=== PATIENT | male | born 1980 | race Caucasian/White ===

== ENCOUNTER → 2019-11-12 14:08 | Outpatient (CLI) | payer OTHER, SELFPAY ==
[2019-11-12 12:14] VITALS: BMI 49.0
== END ==
PROVIDERS: Family Provider Family Medicine; PCP Family Medicine; Referring Provider Physician Assistant Surgical; Visit Provider Physician Assistant Surgical
DX: L08.9 Local infection of the skin and subcutaneous tissue, unspecified (principal); B95.8 Unspecified staphylococcus as the cause of diseases classified elsewhere
CPT/HCPCS: 87070; 87077; 87186; 87205

== ENCOUNTER → 2020-10-13 14:45 | Outpatient (CLI) | payer OTHER, SELFPAY ==
[2019-11-12 12:14] VITALS: BMI 49.0
[2020-10-13 17:53] LABS: Absolute Lymphocyte Count 2.03 X10^3/uL (0.83-4.51); Absolute Neutrophil Count 7.8 X10^3/uL (2.0-7.7); Basophil# 0.04 X10^3/uL; Basophil% 0.4 % (0-1); Eosinophil# 0.19 X10^3/uL; Eosinophils% 1.7 % (0-5); Hemoglobin 15.3 g/dL (13.0-16.5); Lymphocyte # 2.03 X10^3/ul (4.0); Mean Corp Hgb Conc 31.9 g/dL (32-36); Mean Corpuscular Hgb 28.6 pg (27.0-32.0); Mean Corpuscular Volume 89.7 fL (80-94); Mean Platelet Vol. 9.5 fl (6.2-12.0); Monocyte# 1.12 X10^3/uL; Monocyte% 9.9 % (0-10); NRBC Flagged by Analyzer 0 % (0-5); Neutrophil # 7.82 X10^3/uL (2.7-7.7); Neutrophil % 69.2 % (47-70); Platelet Count 374 K/mm3 (150-450); RBC Distribution Width CV 12.8 % (11.6-14.6); Red Blood Count 5.35 M/mm3 (4.6-6.2); White Blood Count 11.3 K/mm3 (4.4-11.0)
[2020-10-13 18:14] LABS: AST(SGOT) 21 U/L (15-37); Alanine Aminotransfer ALT/SGPT 46 U/L (16-61); Albumin, Serum 3.8 g/dL (3.2-5.0); Alkaline Phosphatase 100 U/L (45-117); Anion Gap 6 (5-15); BUN 16 mg/dL (7-18); BUN/Creat Ratio 19.8 RATIO (10-20); Calcium,Total 9.2 mg/dL (8.5-10.1); Chloride 104 mmol/L (98-107); Cholesterol 202 mg/dL (200); Creatinine, Serum 0.81 mg/dL (0.70-1.30); EST Glomerular Filtration Rate 114 mL/min (>60); Est Glom Filt Rate - Afr Amer 138 mL/min (>60); Globulin 3.8 g/dL (2.2-4.2); Glucose 99 mg/dL (74-106); High Density Lipoprotein 48 mg/dL; Potassium 3.4 mmol/L (3.5-5.1); Protein, Total 7.6 g/dL (6.4-8.2); Sodium Level 139 mmol/L (136-145); Thyroid Stim Hormone (TSH) 1.25 uIU/mL (0.358-3.74); Triglycerides 120 mg/dL; Very Low Density Lipoprotein 24 mg/dL (5-40)
== END ==
PROVIDERS: PCP Family Medicine; Visit Provider Family Medicine
DX: E66.01 Morbid (severe) obesity due to excess calories (principal)
CPT/HCPCS: 36415; 80053; 80061; 84443; 85025

== ENCOUNTER → 2020-10-20 11:30 | Outpatient (CLI) | payer OTHER, SELFPAY ==
[2019-11-12 12:14] VITALS: BMI 49.0
--- NOTE | 2020-10-20 11:34 | US_ITS ---
STUDY: THYROID ULTRASOUND REASON FOR EXAM: Male, 40 years old. Nodule. TECHNIQUE: Ultrasound evaluation of the thyroid was performed with real-time and static souza-scale imaging. COMPARISON: None. FINDINGS: RIGHT LOBE: The right lobe of the thyroid gland measures 4.1 x 1.8 x 1.6 cm. There is a homogeneous echotexture. In the posterior mid thyroid there is a heterogeneously hypoechoic 4 x 5 x 4 mm nodule. It is uncertain whether this thyroid nodule or parathyroid gland. LEFT LOBE: The left lobe of the thyroid gland measures 4.9 x 1.6 x 1.4 cm. There is a homogeneous echotexture. There are no demonstrated solid, cystic or complex lesions. ISTHMUS: The isthmus measures 0.5 cm. The regional lymph nodes are normal. US/Thyroid IMPRESSION: Hypoechoic thyroid nodule versus parathyroid gland in the mid right thyroid. Study is otherwise unremarkable. Electronically Signed: Joaquim Green DO at 23:26 EST Tel [phone], Service support ,
== END ==
PROVIDERS: PCP Family Medicine; Referring Provider Family Medicine; Visit Provider Family Medicine
DX: E04.1 Nontoxic single thyroid nodule (principal)
CPT/HCPCS: 76536

== ENCOUNTER → 2020-11-28 12:10 | Outpatient (CLI) | payer OTHER, SELFPAY ==
[2019-11-12 12:14] VITALS: BMI 49.0
[2020-11-28 15:51] LABS: Anion Gap 8 (5-15); BUN 17 mg/dL (7-18); BUN/Creat Ratio 21.1 RATIO (10-20); Calcium,Total 9.3 mg/dL (8.5-10.1); Chloride 104 mmol/L (98-107); Creatinine, Serum 0.81 mg/dL (0.70-1.30); EST Glomerular Filtration Rate 114 mL/min (>60); Est Glom Filt Rate - Afr Amer 138 mL/min (>60); Glucose 87 mg/dL (74-106); Potassium 3.4 mmol/L (3.5-5.1); Sodium Level 139 mmol/L (136-145)
== END ==
PROVIDERS: PCP Family Medicine; Visit Provider Family Medicine
DX: I10 Essential (primary) hypertension (principal)
CPT/HCPCS: 36415; 80048

== ENCOUNTER → 2021-06-12 15:23 | Outpatient (CLI) | payer OTHER, SELFPAY ==
[2019-11-12 12:14] VITALS: BMI 49.0
[2021-06-12 17:17] LABS: Absolute Lymphocyte Count 2.11 X10^3/uL (0.83-4.51); Absolute Neutrophil Count 7.7 X10^3/uL (2.0-7.7); Basophil# 0.06 X10^3/uL; Basophil% 0.5 % (0-1); Eosinophil# 0.14 X10^3/uL; Eosinophils% 1.3 % (0-5); Hematocrit 46.6 % (40-54); Hemoglobin 14.9 g/dL (13.0-16.5); Lymphocyte # 2.11 X10^3/ul (0.83-4.51); Lymphocyte % 18.9 % (19-41); Mean Corpuscular Hgb 28.8 pg (27.0-32.0); Mean Corpuscular Volume 90.1 fL (80-94); Mean Platelet Vol. 9.5 fl (6.2-12.0); Monocyte# 1.01 X10^3/uL; Monocyte% 9.1 % (0-10); NRBC Flagged by Analyzer 0 % (0-5); Neutrophil # 7.72 X10^3/uL (2.7-7.7); Neutrophil % 69.2 % (47-70); Platelet Count 386 K/mm3 (150-450); RBC Distribution Width CV 12.6 % (11.6-14.6); RBC Distribution Width SD 41.9 fl (35.1-43.9); Red Blood Count 5.17 M/mm3 (4.6-6.2); White Blood Count 11.2 K/mm3 (4.4-11.0)
[2021-06-12 17:32] LABS: AST(SGOT) 12 U/L (15-37); Alanine Aminotransfer ALT/SGPT 29 U/L (16-61); Albumin, Serum 3.6 g/dL (3.2-5.0); Alkaline Phosphatase 93 U/L (45-117); Anion Gap 4 (5-15); BUN 13 mg/dL (7-18); BUN/Creat Ratio 17.2 RATIO (10-20); Calcium,Total 8.9 mg/dL (8.5-10.1); Chloride 111 mmol/L (98-107); Cholesterol 201 mg/dL (200); Creatinine, Serum 0.76 mg/dL (0.70-1.30); EST Glomerular Filtration Rate 122 mL/min (>60); Est Glom Filt Rate - Afr Amer 148 mL/min (>60); Globulin 3.7 g/dL (2.2-4.2); Glucose 93 mg/dL (74-106); High Density Lipoprotein 57 mg/dL; Potassium 3.9 mmol/L (3.5-5.1); Protein, Total 7.3 g/dL (6.4-8.2); Sodium Level 145 mmol/L (136-145); Triglycerides 124 mg/dL; Very Low Density Lipoprotein 25 mg/dL (5-40)
== END ==
PROVIDERS: PCP Family Medicine; Referring Provider Family Medicine; Visit Provider Family Medicine
DX: I10 Essential (primary) hypertension (principal)
CPT/HCPCS: 36415; 80053; 80061; 85025

== ENCOUNTER 2021-07-30 21:05 | Emergency (ER) | payer OTHER, SELFPAY ==
[2021-07-30 21:30] VITALS: BP 144/90; PULSE 96; RESP 21; TEMP 36.4; O2SAT 96; BMI 51.7
[2021-07-30 21:33] VITALS: BP 144/90; PULSE 96; RESP 21; TEMP 36.4; O2SAT 96
--- NOTE | 2021-07-30 21:44 | EKG12_ITS ---
Test Reason : DYSRYTHMIA Blood Pressure : / mmHG Vent. Rate : 097 BPM Atrial Rate : 097 BPM P-R Int : 156 ms QRS Dur : 096 ms QT Int : 386 ms P-R-T Axes : 044 -23 -11 degrees QTc Int : 490 ms Normal sinus rhythm Prolonged QT Poor R wave progression Abnormal ECG Confirmed by ISRRAEL SHUKLA, SLOAN ([id number]), field map editor PRACHI GUAJARDO ([id number]) on 08/03/2021 11:52:34 AM Referred By: JEFFRY Confirmed By:SLOAN ARCOS MD
--- NOTE | 2021-07-30 21:46 | EX.ED.DYSGE1 ---
HPI <Dr. Lili Ortiz MD - Last Filed: 07/30/21 23:09> History of Present Illness Chief Complaint: General Illness Informant: patient and spouse/S.O. Onset/Context/Timing Onset: Yesterday Current Severity: Moderate Maximum Severity: Moderate Narrative Narrative: Patient presents with complaints of congestion, sore throat, cough, shortness of breath, vomiting, diarrhea. Patient became ill yesterday. No fever has been measured. He did have an episode of lightheadedness tonight causing him to fall to the floor. is not sure that he passed out. Patient denies chest pain at this time. He does complain of diffuse abdominal pain. He did have the Covid vaccine. One of their children is sick with a sinus infection currently. PFSH <Dr. Lili Ortiz MD - Last Filed: 07/30/21 23:09> [facility] Medical History Depression HTN (hypertension) Home Medications lisinopril 20 mg PO DAILY 07/30/21 [History Last Taken Unknown] ondansetron 4 mg PO Q8H PRN PRN #20 tab 07/31/21 [Rx Last Taken Unknown] Allergy/AdvReac Type Severity Reaction Status Date / Time No Known Allergies Allergy Verified 07/30/21 21:33 Social History Smoking Status: Former smoker alcohol intake: never ROS <Dr. Lili Ortiz MD - Last Filed: 07/30/21 23:09> ROS ED Constitutional Constitutional ED: Denies chills or fever(s) Eyes Eyes: Denies change in vision ENT ENT ED: Reports sore throat and other Details: Congestion Cardiovascular Cardiovascular: Denies chest pain Respiratory/Chest Respiratory/Chest: Reports cough and dyspnea Gastrointestinal Gastrointestinal: Reports abdominal pain, diarrhea, nausea and vomiting Genitourinary Genitourinary ED: Denies dysuria Musculoskeletal Musculoskeletal: Reports myalgias; Denies back pain Integumentary Denies rash Neurologic Neurologic: Reports weakness; Denies headache(s) Psychiatric Psychiatric: Denies anxiety or depression Allergic/Immunologic Allergic/Immunologic ED: Denies urticaria EXAM <Dr. Lili Ortiz MD - Last Filed: 07/30/21 23:09> Physical Exam Const Vital Signs: 07/30/21 21:30 07/30/21 21:33 07/30/21 21:34 Temperature 97.6 F L 97.6 F L Temperature Source Oral Oral Pulse Rate 96 96 Respiratory Rate 21 H 21 H Respiratory Effort Short of Breath Blood Pressure 144/90 H 144/90 H Blood Pressure Mean 108 108 Pulse Ox 96 96 Oxygen Delivery Method Room Air Room Air 07/30/21 22:33 07/30/21 23:05 07/31/21 00:00 Temperature 97.6 F L 98.9 F 98.9 F Temperature Source Oral Oral Oral Pulse Rate 114 H 115 H 120 H Respiratory Rate 20 H 20 H 25 H Respiratory Effort Blood Pressure 146/110 H 151/137 H 149/134 H Blood Pressure Mean 122 141 139 Pulse Ox 96 95 96 Oxygen Delivery Method Room Air Room Air Room Air 07/31/21 01:31 07/31/21 04:04 07/31/21 05:08 Temperature Temperature Source Pulse Rate 112 H 113 H 112 H Respiratory Rate 25 H 26 H 18 Respiratory Effort Blood Pressure 146/100 H Blood Pressure Mean Pulse Ox 93 94 99 Oxygen Delivery Method Room Air Room Air Positive well nourished and well developed General Appearance ED: well developed HEENT Reports normocephalic and head/scalp atraumatic Eyes PERRL and EOMs intact bilaterally Neck supple Chest Wall inspection of chest normal and palpation of chest normal Resp normal respiratory effort and clear to auscultation bilaterally Cardio regular rate and regular rhythm GI Auscultation: hypoactive bowel sounds Palpation: soft and tender other (Mild diffuse tenderness to palpation.) Extremity normal to inspection Neuro oriented x3 Sensorium / Orientation: alert Psych mental status grossly normal Skin no rashes or lesions noted <Dr. Roderick Arguello DO - Last Filed: 07/31/21 07:07> Physical Exam Const Vital Signs: 07/30/21 21:30 07/30/21 21:33 07/30/21 21:34 Temperature 97.6 F L 97.6 F L Temperature Source Oral Oral Pulse Rate 96 96 Respiratory Rate 21 H 21 H Respiratory Effort Short of Breath Blood Pressure 144/90 H 144/90 H Blood Pressure Mean 108 108 Pulse Ox 96 96 Oxygen Delivery Method Room Air Room Air 07/30/21 22:33 07/30/21 23:05 07/31/21 00:00 Temperature 97.6 F L 98.9 F 98.9 F Temperature Source Oral Oral Oral Pulse Rate 114 H 115 H 120 H Respiratory Rate 20 H 20 H 25 H Respiratory Effort Blood Pressure 146/110 H 151/137 H 149/134 H Blood Pressure Mean 122 141 139 Pulse Ox 96 95 96 Oxygen Delivery Method Room Air Room Air Room Air 07/31/21 01:31 07/31/21 04:04 07/31/21 05:08 Temperature Temperature Source Pulse Rate 112 H 113 H 112 H Respiratory Rate 25 H 26 H 18 Respiratory Effort Blood Pressure 146/100 H Blood Pressure Mean Pulse Ox 93 94 99 Oxygen Delivery Method Room Air Room Air MDM <Dr. Lili Ortiz MD - Last Filed: 07/30/21 23:09> MDM MDM Narrative Medical decision making narrative: Patient is given a liter IV fluid along with morphine and Zofran for pain and nausea. Lab work, chest x-ray, Covid swab obtained. Lab Data Attestation: I reviewed the patient's lab results. Labs: Laboratory Results - last 24 hr 07/30/21 07/30/21 07/30/21 20:55 20:55 22:26 WBC 15.7 H RBC 6.44 H Hgb 18.7 H* Hct 57.1 H MCV 88.7 MCH 29.0 MCHC 32.7 RDW Std Deviation 42.2 RDW Coeff of Valentian 12.9 Plt Count 389 MPV 9.7 Immature Gran % (Auto) 1.000 H Neut % (Auto) 80.8 H Lymph % (Auto) 10.8 L [place] % (Auto) 5.7 Eos % (Auto) 1.3 Baso % (Auto) 0.4 Absolute Neuts (auto) 12.7 H Absolute Lymphs (auto) 1.70 Nucleated RBC % 0 Sodium 137 Potassium 3.2 L Chloride 99 Carbon Dioxide 28.0 Anion Gap 10 BUN 11 Creatinine 1.14 Estim Creat Clear Calc 87.86 Est GFR (MDRD) Af Amer 92 Est GFR (MDRD) Non-Af 76 BUN/Creatinine Ratio 9.6 L Glucose 140 H Lactic Acid 2.3 H* Calcium 10.1 Total Bilirubin 1.00 Direct Bilirubin 0.28 AST 18 ALT 40 Alkaline Phosphatase 119 H Total Protein 9.3 H Albumin 4.4 Globulin 4.9 H Lipase 170 07/31/21 02:40 WBC RBC Hgb Hct MCV MCH MCHC RDW Std Deviation RDW Coeff of Valentina Plt Count MPV Immature Gran % (Auto) Neut % (Auto) Lymph % (Auto) [place] % (Auto) Eos % (Auto) Baso % (Auto) Absolute Neuts (auto) Absolute Lymphs (auto) Nucleated RBC % Sodium Potassium Chloride Carbon Dioxide Anion Gap BUN Creatinine Estim Creat Clear Calc Est GFR (MDRD) Af Amer Est GFR (MDRD) Non-Af BUN/Creatinine Ratio Glucose Lactic Acid 1.9 Calcium Total Bilirubin Direct Bilirubin AST ALT Alkaline Phosphatase Total Protein Albumin Globulin Lipase Radiography Chest X-Ray - ED: 1 View, Read by ED Physician and Chronic Changes Diagnostic Testing: Radiology Impression Chest X-Ray 07/30/21 21:58 IMPRESSION: No radiographic evidence of acute cardiopulmonary disease. at 2223 Reported and signed by: Gregg Brito MD Electronically Signed: Gregg Brito MD at 22:22 EDT Tel , Service support , Abdomen/Pelvis CT 07/31/21 00:22 IMPRESSION: Likely enteritis/diarrhea as detailed above. Right adrenal mass. Nonemergent adrenal MRI can be performed to further evaluate. Electronically Signed: Jarocho Barrios DO at 1:19 EDT Tel , Service support , Chest CTA 07/31/21 00:22 IMPRESSION: 1. No pulmonary embolus or acute cardiopulmonary disease. 2. Indeterminate right adrenal lesion. Nonemergent follow-up recommended. 3. Hepatic steatosis. Individualized dose optimization techniques were used for this CT. at 0139 Reported and signed by: Gregg Brito MD Electronically Signed: Gregg Brito MD at 1:38 EDT Tel , Service support , EKG Initial EKG: Attestation: I personally reviewed and interpreted this EKG as follows: Interpretation: Sinus Rhythm (Sinus at 97. QTc measures 490. No acute ST change.) Treatment and Re-Evaluation Comments:: Patient's lab work is reviewed. White count is elevated at 15.7 which may be reactive from his vomiting. Hemoglobin is concentrated at 18.7. Chemistry studies show potassium of 3.2. Normal creatinine at this time. Normal LFTs and lipase. On repeat examination patient resting comfortably. He states he has no nausea at this time. Test results discussed with patient and at bedside. He has been ordered 40 mEq of IV potassium replacement. Repeat abdominal examination reveals minimal tenderness with no guarding or rebound. Hypoactive bowel sounds. Patient will be signed out to oncoming physician for observation as he has his potassium replaced. I did advise the patient to be able to tolerate p.o. we should build to get him home at that time. If he develops recurrent vomiting or worsened pain, or if his abdominal exam changes he may require CT scan. They voiced understanding and agreement. <Dr. Roderick Arguello, DO - Last Filed: 07/31/21 07:07> [facility] Lab Data Labs: Laboratory Results - last 24 hr 07/30/21 07/30/21 07/30/21 20:55 20:55 22:26 WBC 15.7 H RBC 6.44 H Hgb 18.7 H* Hct 57.1 H MCV 88.7 MCH 29.0 MCHC 32.7 RDW Std Deviation 42.2 RDW Coeff of Valentina 12.9 Plt Count 389 MPV 9.7 Immature Gran % (Auto) 1.000 H Neut % (Auto) 80.8 H Lymph % (Auto) 10.8 L [place] % (Auto) 5.7 Eos % (Auto) 1.3 Baso % (Auto) 0.4 Absolute Neuts (auto) 12.7 H Absolute Lymphs (auto) 1.70 Nucleated RBC % 0 Sodium 137 Potassium 3.2 L Chloride 99 Carbon Dioxide 28.0 Anion Gap 10 BUN 11 Creatinine 1.14 Estim Creat Clear Calc 87.86 Est GFR (MDRD) Af Amer 92 Est GFR (MDRD) Non-Af 76 BUN/Creatinine Ratio 9.6 L Glucose 140 H Lactic Acid 2.3 H* Calcium 10.1 Total Bilirubin 1.00 Direct Bilirubin 0.28 AST 18 ALT 40 Alkaline Phosphatase 119 H Total Protein 9.3 H Albumin 4.4 Globulin 4.9 H Lipase 170 07/31/21 02:40 WBC RBC Hgb Hct MCV MCH MCHC RDW Std Deviation RDW Coeff of Valentina Plt Count MPV Immature Gran % (Auto) Neut % (Auto) Lymph % (Auto) [place] % (Auto) Eos % (Auto) Baso % (Auto) Absolute Neuts (auto) Absolute Lymphs (auto) Nucleated RBC % Sodium Potassium Chloride Carbon Dioxide Anion Gap BUN Creatinine Estim Creat Clear Calc Est GFR (MDRD) Af Amer Est GFR (MDRD) Non-Af BUN/Creatinine Ratio Glucose Lactic Acid 1.9 Calcium Total Bilirubin Direct Bilirubin AST ALT Alkaline Phosphatase Total Protein Albumin Globulin Lipase Radiography Diagnostic Testing: Radiology Impression Chest X-Ray 07/30/21 21:58 IMPRESSION: No radiographic evidence of acute cardiopulmonary disease. at 2223 Reported and signed by: Gregg Brito MD Electronically Signed: Gregg Brito MD at 22:22 EDT Tel , Service support , Abdomen/Pelvis CT 07/31/21 00:22 IMPRESSION: Likely enteritis/diarrhea as detailed above. Right adrenal mass. Nonemergent adrenal MRI can be performed to further evaluate. Electronically Signed: Jarocho Barrios DO at 1:19 EDT Tel , Service support , Chest CTA 07/31/21 00:22 IMPRESSION: 1. No pulmonary embolus or acute cardiopulmonary disease. 2. Indeterminate right adrenal lesion. Nonemergent follow-up recommended. 3. Hepatic steatosis. Individualized dose optimization techniques were used for this CT. at 0139 Reported and signed by: Gregg Brito MD Electronically Signed: Gregg Brito MD at 1:38 EDT Tel , Service support , Discharge Plan Triage Chief Complaint: General Illness ED Provider: Roderick Arguello Dx/Rx/DC Orders Clinical Impression: Viral syndrome, Gastroenteritis Prescriptions: New ondansetron 4 mg tablet,disintegrating 4 mg PO Q8H PRN PRN (Reason: Nausea) Qty: 20 RF: 0 No Action lisinopril 20 mg Tablet 20 mg PO DAILY RF: 0 Primary Care Provider: Sanjay Varela Referrals: Sanjay Varela MD [Primary Care Provider] - Disposition Discharge Date/Time: 07/31/21 05:09
--- NOTE | 2021-07-30 21:58 | RAD_ITS ---
HISTORY: cough EXAMINATION/TECHNIQUE: XR Chest 1 View portable AP view COMPARISON: None FINDINGS: LINES/DEVICES: environmental monitoring specialist leads. LUNGS: No pulmonary edema. No focal airspace consolidation. No sizable pleural effusion. No pneumothorax detected. Mildly elevated right hemidiaphragm. MEDIASTINUM AND CARDIOVASCULAR STRUCTURES: Heart size within normal limits for imaging technique. Central airways and mediastinal contour are unremarkable. BONES AND SOFT TISSUES: No acute findings. RAD/Chest 1 View (Portable) IMPRESSION: No radiographic evidence of acute cardiopulmonary disease. at 2223 Reported and signed by: Gregg Brito MD Electronically Signed: Gregg Brito MD at 22:22 EDT Tel , Service support ,
[2021-07-30 22:00] LABS: Absolute Neutrophil Count 12.7 X10^3/uL (2.0-7.7); Basophil# 0.07 X10^3/uL; Basophil% 0.4 % (0-1); Eosinophils% 1.3 % (0-5); Lymphocyte % 10.8 % (19-41); Mean Corp Hgb Conc 32.7 g/dL (32-36); Mean Corpuscular Volume 88.7 fL (80-94); Mean Platelet Vol. 9.7 fl (6.2-12.0); Monocyte% 5.7 % (0-10); NRBC Flagged by Analyzer 0 % (0-5); Neutrophil # 12.66 X10^3/uL (2.7-7.7); Neutrophil % 80.8 % (47-70); Platelet Count 389 K/mm3 (150-450); RBC Distribution Width CV 12.9 % (11.6-14.6); RBC Distribution Width SD 42.2 fl (35.1-43.9); Red Blood Count 6.44 M/mm3 (4.6-6.2); White Blood Count 15.7 K/mm3 (4.4-11.0)
[2021-07-30 22:03] LABS: Hematocrit 57.1 % (40-54); Hemoglobin 18.7 g/dL (13.0-16.5)
[2021-07-30 22:12] LABS: AST(SGOT) 18 U/L (15-37); Alanine Aminotransfer ALT/SGPT 40 U/L (16-61); Albumin, Serum 4.4 g/dL (3.2-5.0); Alkaline Phosphatase 119 U/L (45-117); Anion Gap 10 (5-15); BUN 11 mg/dL (7-18); BUN/Creat Ratio 9.6 RATIO (10-20); Bilirubin, Direct 0.28 mg/dL (0.00-0.30); Calcium,Total 10.1 mg/dL (8.5-10.1); Chloride 99 mmol/L (98-107); Creatinine, Serum 1.14 mg/dL (0.70-1.30); EST Glomerular Filtration Rate 76 mL/min (>60); Est Glom Filt Rate - Afr Amer 92 mL/min (>60); Estimated Creatinine Clearance 87.86 ml/min; Globulin 4.9 g/dL (2.2-4.2); Glucose 140 mg/dL (74-106); Lipase 170 U/L (73-393); Potassium 3.2 mmol/L (3.5-5.1); Protein, Total 9.3 g/dL (6.4-8.2); Sodium Level 137 mmol/L (136-145)
[2021-07-30] MEDS: Ondansetron 4 MG/2 ML Vial IV (22:18)
[2021-07-30] MEDS: Morphine 4 MG/ML Syringe IV (22:18)
[2021-07-30 22:33] VITALS: BP 146/110; PULSE 114; RESP 20; TEMP 36.4; O2SAT 96
[2021-07-30] MEDS: Potassium Chloride 10mEq/100mL 10 MEQ/100 ML IV.SOLN. 100 MEQ IV BOLUS ×2 (22:47→23:51)
[2021-07-30 23:05] VITALS: BP 151/137; PULSE 115; RESP 20; TEMP 37.2; O2SAT 95
[2021-07-30 23:18] LABS: Lactic Acid 2.3 mmol/L (0.4-1.9)
[2021-07-31] VITALS: BP 149/134; PULSE 120; RESP 25; TEMP 37.2; O2SAT 96
--- NOTE | 2021-07-31 00:22 | CT_ITS ---
HISTORY: dyspnea EXAMINATION: CTA Chest W/ Contrast Injection (and W/O Contrast Images if performed) TECHNIQUE: Helically acquired images were obtained of the chest following IV contrast as per pulmonary angiogram protocol with MIP and MPR reconstructions. A radiation dose optimization technique was used for this scan. IV Contrast dosage and agent: 100mL Isovue-370 COMPARISON: Concurrent CT abdomen and pelvis FINDINGS: LUNGS, PLEURA AND LARGE AIRWAYS: No pulmonary mass, consolidation, concerning opacity or edema. No pleural effusion or pleural thickening. No pneumothorax. PULMONARY ARTERIES: No pulmonary arterial filling defects identified. AORTA AND GREAT VESSELS: No thoracic aortic aneurysm or dissection. Great vessels are patent. HEART AND PERICARDIUM: Heart size is normal. No significant pericardial effusion. MEDIASTINUM AND RYANN: No pathologically enlarged mediastinal or hilar lymph nodes. Small amount of fluid within distal esophagus but no significant esophageal dilatation. THYROID: Unremarkable as visualized. Slightly limited evaluation secondary to streak artifact. UPPER ABDOMEN: 2.8 cm right adrenal lesion again noted. Fatty infiltration of liver. BONES: Intact with no suspicious osseous lesion. SOFT TISSUES: No acute findings. CT/CTA Chest W/WO Contrast IMPRESSION: 1. No pulmonary embolus or acute cardiopulmonary disease. 2. Indeterminate right adrenal lesion. Nonemergent follow-up recommended. 3. Hepatic steatosis. Individualized dose optimization techniques were used for this CT. at 0139 Reported and signed by: Gregg Brito MD Electronically Signed: Gregg Brito MD at 1:38 EDT Tel , Service support ,
--- NOTE | 2021-07-31 00:22 | CT_ITS ---
STUDY: CT ABDOMEN AND PELVIS WITH CONTRAST REASON FOR EXAM: Male, 40 years old. abdominal pain RADIATION DOSAGE (If Supplied By Facility): CTDIvol = ( 19.44 ) mGy, DLP = ( 2347.09 ) mGycm TECHNIQUE: Transaxial images were obtained from the dome of the diaphragm to the symphysis pubis without oral contrast. IV 100mL Isovue-370 was administered. Sagittal and coronal images were reconstructed. Individualized dose optimization techniques were used for this CT. COMPARISON: None. FINDINGS: The visualized lung bases are unremarkable. The visualized portions of the heart are within normal limits. Normal liver. Normal gallbladder and extrahepatic biliary system. Normal spleen. Normal pancreas. . Right adrenal mass measuring 3 x 2.5 cm. Normal right kidney. Normal left kidney. Normal visualized stomach. Normal small intestine. Fluid distended large bowel suggesting enteritis and diarrhea. The appendix is visualized and appears normal. Normal abdominal aorta. Normal inferior vena cava. Normal retroperitoneum. Normal urinary bladder. Normal visualized prostate gland. Normal abdominal wall. Normal osseous structures. CT/Abdomen/Pelvis W IV Cont ONLY IMPRESSION: Likely enteritis/diarrhea as detailed above. Right adrenal mass. Nonemergent adrenal MRI can be performed to further evaluate. Electronically Signed: Jarocho Barrios DO at 1:19 EDT Tel , Service support ,
[2021-07-31] MEDS: Potassium Chloride 10mEq/100mL 10 MEQ/100 ML IV.SOLN. 100 MEQ IV BOLUS ×2 (01:17→02:26)
[2021-07-31 01:31] VITALS: PULSE 112; RESP 25; O2SAT 93
[2021-07-31 02:34] LABS: Reflex Lactate? Y
[2021-07-31 03:18] LABS: Lactic Acid 1.9 mmol/L (0.4-1.9)
[2021-07-31 03:50] VITALS: O2SAT 94
[2021-07-31 04:04] VITALS: PULSE 113; RESP 26; O2SAT 94
[2021-07-31 05:08] VITALS: BP 146/100; PULSE 112; RESP 18; O2SAT 99
== END 2021-07-31 05:09 ==
PROVIDERS: Emergency Medicine; Emergency Provider Student in an Organized Health Care Education/Training Program; PCP Family Medicine
DX: K52.9 Noninfective gastroenteritis and colitis, unspecified (principal); B34.9 Viral infection, unspecified; R05 Cough; R06.02 Shortness of breath; R09.81 Nasal congestion; J02.9 Acute pharyngitis, unspecified; I10 Essential (primary) hypertension; F32.9 Major depressive disorder, single episode, unspecified; Z79.899 Other long term (current) drug therapy; Z87.891 Personal history of nicotine dependence
CPT/HCPCS: 71045; 71275; 74177; 80048; 80076; 83605; 83690; 85025; 87040; 87426; 93005; 96365; 96366; 96374; 96375; 99285; J7030; Q9967; A4216; J2405

== ENCOUNTER → 2021-07-30 | Outpatient (CLI) | payer OTHER, SELFPAY | END | disposition home or self-care (01) | LOC: LABSPEC 11:29 | PROVIDERS: PCP Family Medicine; Referring Provider Family Medicine; Visit Provider Family Medicine | DX: B34.9 Viral infection, unspecified (principal) | CPT/HCPCS: 87635; U0005; U0003 ==

== ENCOUNTER → 2021-09-29 08:42 | Outpatient (CLI) | payer OTHER, SELFPAY ==
[2021-09-29 10:04] LABS: Absolute Lymphocyte Count 2.05 X10^3/uL (0.83-4.51); Absolute Neutrophil Count 5.7 X10^3/uL (2.0-7.7); Basophil# 0.05 X10^3/uL; Basophil% 0.6 % (0-1); Eosinophil# 0.15 X10^3/uL; Eosinophils% 1.7 % (0-5); Hematocrit 46.6 % (40-54); Lymphocyte # 2.05 X10^3/ul (0.83-4.51); Lymphocyte % 23.4 % (19-41); Mean Corp Hgb Conc 32.2 g/dL (32-36); Mean Corpuscular Hgb 28.6 pg (27.0-32.0); Mean Corpuscular Volume 88.8 fL (80-94); Mean Platelet Vol. 9.4 fl (6.2-12.0); Monocyte# 0.69 X10^3/uL; Monocyte% 7.9 % (0-10); NRBC Flagged by Analyzer 0 % (0-5); Neutrophil # 5.72 X10^3/uL (2.7-7.7); Neutrophil % 65.3 % (47-70); Platelet Count 375 K/mm3 (150-450); RBC Distribution Width CV 12.7 % (11.6-14.6); RBC Distribution Width SD 41.6 fl (35.1-43.9); Red Blood Count 5.25 M/mm3 (4.6-6.2); White Blood Count 8.8 K/mm3 (4.4-11.0)
[2021-09-29 10:50] LABS: ALB/GLOB Ratio 0.8 RATIO (0.9-2.4); AST(SGOT) 15 U/L (15-37); Alanine Aminotransfer ALT/SGPT 37 U/L (16-61); Albumin, Serum 3.4 g/dL (3.2-5.0); Alkaline Phosphatase 86 U/L (45-117); Anion Gap 4 (5-15); BUN 12 mg/dL (7-18); BUN/Creat Ratio 15.2 RATIO (10-20); Calcium,Total 8.7 mg/dL (8.5-10.1); Chloride 104 mmol/L (98-107); Cholesterol 220 mg/dL (200); Creatinine, Serum 0.79 mg/dL (0.70-1.30); EST Glomerular Filtration Rate 116 mL/min (>60); Est Glom Filt Rate - Afr Amer 140 mL/min (>60); Glucose 99 mg/dL (74-106); High Density Lipoprotein 53 mg/dL; Potassium 3.7 mmol/L (3.5-5.1); Protein, Total 7.4 g/dL (6.4-8.2); Sodium Level 137 mmol/L (136-145); Thyroid Stim Hormone (TSH) 0.88 uIU/mL (0.358-3.74); Triglycerides 75 mg/dL; Very Low Density Lipoprotein 15 mg/dL (5-40)
== END ==
PROVIDERS: PCP Family Medicine; Referring Provider Family Medicine; Visit Provider Family Medicine
DX: I10 Essential (primary) hypertension (principal)
CPT/HCPCS: 36415; 80053; 80061; 84443; 85025

== ENCOUNTER 2021-10-02 11:10 | Outpatient (CLI) | payer OTHER, SELFPAY ==
[2021-10-02] MEDS: 0.9% Saline Lock 10 ML Syringe IV (11:34)
[2021-10-02 11:36] VITALS: BP 151/94; PULSE 93; RESP 16; TEMP 37.1; O2SAT 98; BMI 50.5
[2021-10-02 12:30] VITALS: BP 150/99; PULSE 82; RESP 16; TEMP 36.4; O2SAT 100
[2021-10-02 13:30] VITALS: BP 146/99; PULSE 87; RESP 16; TEMP 36.8; O2SAT 100
== END 2021-10-02 13:30 | disposition home or self-care (01) ==
LOC: MS3OUT 11:10 → MS3 11:11
PROVIDERS: PCP Family Medicine; Referring Provider Nurse Practitioner Adult Health; Visit Provider Nurse Practitioner Adult Health
DX: Z23 Encounter for immunization (principal); U07.1 COVID-19
CPT/HCPCS: J7050; M0245; Q0245; A4216

== ENCOUNTER 2022-01-26 08:12 | Outpatient (CLI) | payer OTHER, SELFPAY ==
[2022-01-26 10:07] LABS: Color, Urine Yellow (Yellow); Glucose, Dipstick Normal (Normal); Ketone-Dipstick Negative (Negative); Leukocyte Esterase-Dipstick Negative /ul (Negative); Nitrite-Dipstick Negative (Negative); Occult Blood-Urine Negative /ul (Negative); Protein-Dipstick Negative (Negative); Urine Bilirubin Dipstick Negative (Negative); Urine Clarity Sl. Cloudy (Clear); Urine Urobilinogen Normal (Normal)
[2022-01-26 10:11] LABS: Absolute Lymphocyte Count 1.87 X10^3/uL (0.83-4.51); Absolute Neutrophil Count 5.3 X10^3/uL (2.0-7.7); Basophil# 0.04 X10^3/uL; Basophil% 0.5 % (0-1); Eosinophil# 0.21 X10^3/uL; Eosinophils% 2.5 % (0-5); Hematocrit 46.5 % (40-54); Hemoglobin 15.1 g/dL (13.0-16.5); Lymphocyte # 1.87 X10^3/ul (0.83-4.51); Lymphocyte % 22.5 % (19-41); Mean Corp Hgb Conc 32.5 g/dL (32-36); Mean Corpuscular Hgb 29.2 pg (27.0-32.0); Mean Corpuscular Volume 89.9 fL (80-94); Mean Platelet Vol. 9.6 fl (6.2-12.0); Monocyte# 0.83 X10^3/uL; NRBC Flagged by Analyzer 0 % (0-5); Neutrophil % 63.8 % (47-70); Platelet Count 340 K/mm3 (150-450); RBC Distribution Width CV 13.2 % (11.6-14.6); RBC Distribution Width SD 43.4 fl (35.1-43.9); Red Blood Count 5.17 M/mm3 (4.6-6.2); White Blood Count 8.3 K/mm3 (4.4-11.0)
[2022-01-26 10:18] LABS: Bacteria RARE /hpf (None Seen); Mucous, Urine RARE /hpf (<or=2+); Red Blood Cells-Urine 0-5 SEEN /hpf (0-5); Squamous Epithelial Cells - UA 0-5 SEEN /hpf (0-5); White Blood Cells 0-5 SEEN /hpf (0-5)
[2022-01-26 11:19] LABS: ALB/GLOB Ratio 1.1 RATIO (0.9-2.4); AST(SGOT) 14 U/L (15-37); Alanine Aminotransfer ALT/SGPT 35 U/L (16-61); Albumin, Serum 3.5 g/dL (3.2-5.0); Alkaline Phosphatase 98 U/L (45-117); Anion Gap 8 (5-15); BUN 13 mg/dL (7-18); BUN/Creat Ratio 19.1 RATIO (10-20); Calcium,Total 8.7 mg/dL (8.5-10.1); Chloride 104 mmol/L (98-107); Cholesterol 208 mg/dL (200); Creatinine, Serum 0.68 mg/dL (0.70-1.30); EST Glomerular Filtration Rate 138 mL/min (>60); Est Glom Filt Rate - Afr Amer 167 mL/min (>60); Globulin 3.3 g/dL (2.2-4.2); Glucose 102 mg/dL (74-106); High Density Lipoprotein 50 mg/dL; Potassium 3.9 mmol/L (3.5-5.1); Protein, Total 6.8 g/dL (6.4-8.2); Sodium Level 140 mmol/L (136-145); Thyroid Stim Hormone (TSH) 1.39 uIU/mL (0.358-3.74); Triglycerides 82 mg/dL; Very Low Density Lipoprotein 16 mg/dL (5-40)
[2022-01-26 16:17] LABS: Hemoglobin A1c 5.6 % (3.8-5.6)
== END 2022-01-26 23:59 | disposition home or self-care (01) ==
LOC: MFPLAB 08:12
PROVIDERS: PCP Family Medicine; Referring Provider Family Medicine; Visit Provider Family Medicine
DX: I10 Essential (primary) hypertension (principal)
CPT/HCPCS: 36415; 80053; 80061; 81001; 83036; 84443; 85025

== ENCOUNTER 2022-02-05 06:45 | Outpatient (CLI) | payer OTHER, SELFPAY ==
--- NOTE | 2022-02-05 06:55 | CT_ITS ---
EXAM: CT ABDOMEN WITHOUT AND WITH INTRAVENOUS CONTRAST CLINICAL INDICATION: adrenal protocol TECHNIQUE: Helically acquired images were obtained of the abdomen without and with intravenous contrast. This CT exam was performed using one or more of the following dose reduction techniques: automated exposure control, adjustment of the mA and/or kV according to patient size, and/or use of iterative reconstruction technique. This report was created using [employer] report generation technology. CONTRAST: IV 100mL Isovue-370 COMPARISON: Jul 31 2021 12:45am CTA Chest FINDINGS: LOWER THORAX: Unremarkable. Lung bases are clear. No cardiomegaly. No significant pericardial effusion. LIVER: Unremarkable. Homogeneous. No focal mass. GALLBLADDER AND BILE DUCTS: Unremarkable. No calcified gallstones. No gallbladder distention or wall edema. No intra- or extrahepatic biliary ductal dilation. PANCREAS: Unremarkable. No focal cystic or solid mass. SPLEEN: Unremarkable. Normal size without focal cystic or solid mass. ADRENALS: 21 mm right adrenal gland mass. Precontrast: HU 26. Post contrast: HU 49. Delayed contrast: HU 47. KIDNEYS AND URETERS: Unremarkable. Normal renal size and position. No hydronephrosis. STOMACH AND BOWEL: There is an umbilical hernia containing fat. There is no bowel involvement. There is no incarceration. There is no findings suggesting that this is causing a bowel obstruction. No focal inflammatory change. INTRAPERITONEAL SPACE: Unremarkable. No ascites or other fluid collection. No free air. BONES/JOINTS: Unremarkable. No suspicious lytic or blastic abnormality. SOFT TISSUES: See above. VASCULATURE: Unremarkable. Abdominal aorta is non-dilated. LYMPH NODES: No enlarged lymph nodes. CT/Abdomen W/WO IV Contrast IMPRESSION: Right adrenal mass. ACR White Paper guidelines (Gurpreet et al. JACR 2017; 14(8):6927-8302) recommend resection, biopsy, PET-CT or follow-up imaging depending on the clinical scenario. Consider preoperative biochemical assays to determine functional status and exclude pheochromocytoma if biopsy/resection is planned. Electronically Signed: Tera Smalls MD at 20:05 EDT ,
--- NOTE | 2022-02-05 06:55 | US_ITS ---
STUDY: THYROID ULTRASOUND REASON FOR EXAM: Male, 41 years old. THYROID NODULE TECHNIQUE: Ultrasound evaluation of the thyroid was performed with real-time and static souza-scale imaging. COMPARISON: 10.20.20. FINDINGS: RIGHT LOBE: The right lobe of the thyroid gland measures 4.8 x 2.4 x 1.5 cm. There is a homogeneous echotexture. There is a nodule. Mid nodule measures 5 x 5 x 4 mm. The lesion is solid with regular margins and intra-nodular doppler flow. LEFT LOBE: The left lobe of the thyroid gland measures 4.7 x 1.8 x 1.4 cm. There is a homogeneous echotexture. There are no demonstrated solid, cystic or complex lesions. ISTHMUS: The isthmus measures 7 mm. US/Thyroid IMPRESSION: There are RIGHT nodules. This is stable in size. This nodule is solid or almost completely solid, hyperechoic or isoechoic, [id number], smoothly marginated and contains no echogenic foci. TI-RADS points: 3. TI-RADS category: TR3. This nodule is mildly suspicious but no FNA or follow-up is necessary given the small size of this nodule. Electronically Signed: Tera Smalls MD at 21:34 EDT ,
== END 2022-02-05 23:59 | disposition home or self-care (01) ==
PROVIDERS: PCP Family Medicine; Visit Provider Family Medicine
DX: E27.8 Other specified disorders of adrenal gland (principal); E04.1 Nontoxic single thyroid nodule
CPT/HCPCS: 74170; 76536; Q9967

== ENCOUNTER 2022-02-26 12:40 | Outpatient (CLI) | payer OTHER, SELFPAY ==
[2022-02-26 14:30] LABS: Follicle Stimulating Hormone < 0.2 mIU/mL; Luteinizing Hormone 0.3 mIU/mL
== END 2022-02-26 23:59 | disposition home or self-care (01) ==
LOC: BIMLAB 12:41
PROVIDERS: PCP Family Medicine; Referring Provider Internal Medicine Endocrinology, Diabetes & Metabolism; Visit Provider Internal Medicine Endocrinology, Diabetes & Metabolism
DX: D35.00 Benign neoplasm of unspecified adrenal gland (principal)
CPT/HCPCS: 36415; 82024; 82088; 82384; 82533; 82627; 83001; 83002; 84244; 84402; 84403; 82626

== ENCOUNTER 2022-03-02 08:09 | Outpatient (CLI) | payer OTHER, SELFPAY | END 2022-03-02 23:59 | disposition home or self-care (01) | PROVIDERS: PCP Family Medicine; Referring Provider Internal Medicine Endocrinology, Diabetes & Metabolism; Visit Provider Internal Medicine Endocrinology, Diabetes & Metabolism | DX: D35.01 Benign neoplasm of right adrenal gland (principal) | CPT/HCPCS: 36415; 82533 ==

== ENCOUNTER 2022-03-04 06:01 | Outpatient (CLI) | payer OTHER, SELFPAY ==
[2022-03-08 12:08] LABS: Cortisol, Urinary Free 32 ug/L (Undefined)
[2022-03-08 14:27] LABS: Cortisol, Free 24Ur 75 ug/24 hr (5-64)
== END 2022-03-04 23:59 | disposition home or self-care (01) ==
LOC: LAB 06:02
PROVIDERS: PCP Family Medicine; Referring Provider Internal Medicine Endocrinology, Diabetes & Metabolism; Visit Provider Internal Medicine Endocrinology, Diabetes & Metabolism
DX: D35.01 Benign neoplasm of right adrenal gland (principal)
CPT/HCPCS: 81050; 82530

== ENCOUNTER → 2022-05-05 | Outpatient (CLI) | payer OTHER, SELFPAY ==
[2022-05-05 12:41] LABS: ALB/GLOB Ratio 1.1 RATIO (0.9-2.4); AST(SGOT) 26 U/L (15-37); Alanine Aminotransfer ALT/SGPT 57 U/L (16-61); Albumin, Serum 3.5 g/dL (3.2-5.0); Alkaline Phosphatase 66 U/L (45-117); Anion Gap 7 (5-15); BUN 9 mg/dL (7-18); BUN/Creat Ratio 11.9 RATIO (10-20); Calcium,Total 8.7 mg/dL (8.5-10.1); Chloride 104 mmol/L (98-107); Creatinine, Serum 0.76 mg/dL (0.70-1.30); EST Glomerular Filtration Rate 122 mL/min (>60); Est Glom Filt Rate - Afr Amer 148 mL/min (>60); Globulin 3.3 g/dL (2.2-4.2); Glucose 133 mg/dL (74-106); Potassium 3.6 mmol/L (3.5-5.1); Protein, Total 6.8 g/dL (6.4-8.2); Sodium Level 139 mmol/L (136-145)
[2022-05-05 13:03] LABS: Hemoglobin A1c 5.7 % (3.8-5.6)
== END | disposition home or self-care (01) ==
LOC: BIMLAB 08:04
PROVIDERS: PCP Family Medicine; Referring Provider Family Medicine; Visit Provider Family Medicine
DX: I10 Essential (primary) hypertension (principal); R73.09 Other abnormal glucose
CPT/HCPCS: 36415; 80053; 83036

== ENCOUNTER 2022-05-24 14:07 | Observation (INO) | payer OTHER, SELFPAY ==
[2022-05-24] VITALS (8 sets, daily range): BP systolic 103–145; BP diastolic 67–129; PULSE 99–116; RESP 16–25; TEMP 35.5–37.1; O2SAT 86–100; BMI 60.0; BMI 58.3
--- NOTE | 2022-05-24 14:21 | EDS_ITS ---
HPI History of Present Illness Chief Complaint: Nausea/Vomiting Detail of Chief Complaint: Vomiting and diarrhea x5 days Informant: patient Narrative Narrative: Patient presents to the emergency department complaint not feeling well for the last 5 days. Patient states he has had vomiting and diarrhea that is been severe. No blood in the vomit or stool. He describes some abdominal pain and cramping related to the retching and vomiting. He denies fever. He denies sick contacts. Patient states he is taken multiple COVID test at home and they have all been negative. Denies cough. Patient has a history of an adrenal tumor. Patient does have history of hypertension. He is not diabetic. Patient at times gets sweaty when he vomits and feels lightheaded with walking. Prior similar symptoms: No PFSH PFSH Medical History (Updated 05/24/22 @ 15:[address] Fidel Miguel, DO) Adrenal adenoma Adrenal benign tumor Allergies COVID-19 Depression Essential hypertension GERD (gastroesophageal reflux disease) HTN (hypertension) Hypokalemia Obesity Home Medications lisinopril 20 mg tablet 20 mg PO DAILY 07/30/21 [History Last Taken Unknown] sertraline 50 mg tablet (Zoloft) 50 mg PO DAILY 10/02/21 [History Last Taken Unknown] cetirizine 10 mg tablet (Zyrtec) 10 mg PO DAILY PRN 02/26/22 [History Last Taken Unknown] omeprazole 20 mg capsule,delayed release 20 mg PO DAILY PRN 02/26/22 [History Last Taken Unknown] Allergy/AdvReac Type Severity Reaction Status Date / Time No Known Allergies Allergy Verified 05/24/22 14:10 Family History Other Anxiety Arthritis Cancer Depression Diabetes Heart disease High cholesterol Mental disorder Myocardial infarction Psychiatric care Social History Smoking Status: Former smoker alcohol intake: current alcohol intake frequency: holidays/special occasions only Alcohol type: beer substance use type: does not use what type of physical activity do you participate in: none ROS ROS ED Review of Systems ROS Unobtainable: other Constitutional Constitutional ED: Reports lethargy; Denies chills, fever(s), sweats or weight loss Eyes Eyes: Denies blurry vision, change in vision or diplopia ENT ENT ED: Denies rhinorrhea or sore throat Cardiovascular Cardiovascular: Reports chest pain and racing heartbeat; Denies orthopnea Respiratory/Chest Respiratory/Chest: Reports dyspnea and dyspnea on exertion; Denies cough, orthopnea or sputum Gastrointestinal Gastrointestinal: Reports abdominal pain, diarrhea, nausea and vomiting Genitourinary Genitourinary ED: Denies dysuria, hematuria or urinary frequency Musculoskeletal Musculoskeletal: Denies arthralgias, back pain, myalgias or neck pain Integumentary Denies abscess, Abrasions or rash Neurologic Neurologic: Denies headache(s) or weakness Psychiatric Psychiatric: Denies anxiety, depression or suicidal thoughts Endocrine Endocrinology: Denies polydipsia, polyphagia or polyuria Hematologic/Lymphatic Hematologic/Lymphatic: Denies easy bleeding, easy bruising or lymphadenopathy Allergic/Immunologic Allergic/Immunologic ED: Denies mouth swelling, tongue swelling or urticaria EXAM Physical Exam Const Vital Signs: 05/24/22 14:08 05/24/22 14:17 Temperature 96 F L Temperature Source Temporal Pulse Rate 111 H 99 Respiratory Rate 25 H 18 Blood Pressure 145/129 H 142/91 H Blood Pressure Mean 134 108 Pulse Ox 100 99 Oxygen Delivery Method Room Air Room Air Positive well nourished and well developed General Appearance ED: well developed and NAD HEENT Reports TM's clear and moist mucous membranes normocephalic and atraumatic; Negative for trauma or tenderness Tympanic Membrane ED: Yes TM's clear Eyes PERRL and EOMs intact bilaterally General Eye ED: Negative for pale conjunctiva or scleral icterus Neck no lymphadenopathy, supple and no JVD General: Negative for tenderness Chest Wall inspection of chest normal and palpation of chest normal Chest: Negative for tenderness Resp normal respiratory effort and clear to auscultation bilaterally Effort and Inspection: Negative for respiratory distress or pain with movement Auscultation: Negative for rhonchi, wheezes or diminished lung sounds Cardio regular rate, regular rhythm, S1 normal heart sound, S2 normal heart sound and no murmurs Peripheral Pulses: pulses 2+ throughout GI normal to inspection, nondistended, normoactive bowel sounds, soft to palpation, non-tender, non-distended and no masses GI Narrative: Mild diffuse tenderness on exam. There is no rebound, rigidity, or. No signs. Back/Spine no CVA tenderness and no thoracic nor lumbar tenderness Extremity normal to inspection General Extremety ED: Negative for edema General Extremity: Negative for edema Neuro oriented x3, CN's II-XII intact bilaterally, no sensory deficits noted and gait normal Sensorium / Orientation: awake, alert, oriented to person, oriented to place and oriented to time Motor Exam: strength 5/5 throughout and strength abnormal Psych mental status grossly normal Skin no rashes or lesions noted and no wounds MDM MDM MDM Narrative Medical decision making narrative: IV line established on arrival. Patient was given liter normal same fluid bolus. Patient was given Reglan and Benadryl IV. Lab work significant for a creatinine 1.45 and a lactate of 3.2. Patient had slight elevation in his LFTs with a bilirubin of 1.4 and AST of 52 and an ALT of 98. Patient really with no discomfort over the right upper quadrant. Case discussed with hospitalist evaluate patient for admission. Suspect he likely has viral gastroenteritis with acute kidney injury. Lab Data Attestation: I reviewed the patient's lab results. Labs: Laboratory Results - last 24 hr 05/24/22 05/24/22 05/24/22 14:37 14:37 14:37 WBC 9.7 RBC 5.90 Hgb 17.3 H Hct 50.9 MCV 86.3 MCH 29.3 MCHC 34.0 RDW Std Deviation 39.8 RDW Coeff of Valentina 12.7 Plt Count 368 MPV 9.7 Immature Gran % (Auto) 0.500 Neut % (Auto) 67.7 Lymph % (Auto) 19.7 [place] % (Auto) 10.9 H Eos % (Auto) 1.0 Baso % (Auto) 0.2 Absolute Neuts (auto) 6.6 Absolute Lymphs (auto) 1.91 Nucleated RBC % 0 Sodium 136 Potassium 3.2 L Chloride 101 Carbon Dioxide 23.0 Anion Gap 12 BUN 14 Creatinine 1.45 H Estim Creat Clear Calc 66.17 Est GFR (MDRD) Af Amer 69 Est GFR (MDRD) Non-Af 57 L BUN/Creatinine Ratio 9.7 L Glucose 134 H Lactic Acid 3.2 H* Calcium 9.7 Total Bilirubin 1.40 H AST 52 H ALT 98 H Alkaline Phosphatase 74 Total Protein 7.7 Albumin 4.1 Globulin 3.6 Albumin/Globulin Ratio 1.1 Discharge Plan Triage Chief Complaint: Nausea/Vomiting Other Complaint: Abd Pain ED Provider: Fidel Miguel Dx/Rx/DC Orders Clinical Impression: Gastroenteritis, Acute kidney injury, Acidosis, lactic, Acute hypokalemia, Intractable vomiting with nausea Prescriptions: No Action omeprazole 20 mg capsule,delayed release(DR/EC) 20 mg PO DAILY PRN cetirizine [Zyrtec] 10 mg tablet 10 mg PO DAILY PRN lisinopril 20 mg Tablet 20 mg PO DAILY sertraline [Zoloft] 50 mg Tablet 50 mg PO DAILY Primary Care Provider: Sanjay Varela Referrals: Sanjay Varela MD [Primary Care Provider] - Disposition Disposition: Acute Care Hospital [facility]
[2022-05-24] MEDS: 0.9% Normal Saline 1,000 ML 1000 ML IV (14:33)
[2022-05-24] MEDS: DiphenhydrAMINE 50 MG/ML Syringe 25 MG IV (14:33)
[2022-05-24] MEDS: Metoclopramide 10 MG/2 ML Vial IV (14:34)
[2022-05-24 14:47] LABS: Absolute Lymphocyte Count 1.91 X10^3/uL (0.83-4.51); Absolute Neutrophil Count 6.6 X10^3/uL (2.0-7.7); Basophil# 0.02 X10^3/uL; Basophil% 0.2 % (0-1); Hematocrit 50.9 % (40-54); Hemoglobin 17.3 g/dL (13.0-16.5); Lymphocyte # 1.91 X10^3/ul (0.83-4.51); Lymphocyte % 19.7 % (19-41); Mean Corpuscular Hgb 29.3 pg (27.0-32.0); Mean Corpuscular Volume 86.3 fL (80-94); Mean Platelet Vol. 9.7 fl (6.2-12.0); Monocyte# 1.06 X10^3/uL; Monocyte% 10.9 % (0-10); NRBC Flagged by Analyzer 0 % (0-5); Neutrophil # 6.57 X10^3/uL (2.7-7.7); Neutrophil % 67.7 % (47-70); Platelet Count 368 K/mm3 (150-450); RBC Distribution Width CV 12.7 % (11.6-14.6); RBC Distribution Width SD 39.8 fl (35.1-43.9); White Blood Count 9.7 K/mm3 (4.4-11.0)
[2022-05-24 15:10] LABS: ALB/GLOB Ratio 1.1 RATIO (0.9-2.4); AST(SGOT) 52 U/L (15-37); Alanine Aminotransfer ALT/SGPT 98 U/L (16-61); Albumin, Serum 4.1 g/dL (3.2-5.0); Alkaline Phosphatase 74 U/L (45-117); Anion Gap 12 (5-15); BUN 14 mg/dL (7-18); BUN/Creat Ratio 9.7 RATIO (10-20); Calcium,Total 9.7 mg/dL (8.5-10.1); Chloride 101 mmol/L (98-107); Creatinine, Serum 1.45 mg/dL (0.70-1.30); EST Glomerular Filtration Rate 57 mL/min (>60); Est Glom Filt Rate - Afr Amer 69 mL/min (>60); Estimated Creatinine Clearance 66.17 ml/min; Globulin 3.6 g/dL (2.2-4.2); Glucose 134 mg/dL (74-106); Potassium 3.2 mmol/L (3.5-5.1); Protein, Total 7.7 g/dL (6.4-8.2); Sodium Level 136 mmol/L (136-145)
[2022-05-24 15:17] LABS: Lactic Acid 3.2 mmol/L (0.4-1.9)
[2022-05-24] MEDS: Ondansetron 4 MG/2 ML Vial IV (15:26)
--- NOTE | 2022-05-24 15:41 | ED.RN ---
POTASSIUM TABLETS BEING HELD UNTIL NAUSEA UNDER CONTROL, MD BEJARANO
--- NOTE | 2022-05-24 15:42 | NURSING ---
MED SURG ERROL INTRACTABLE NAUSEA, VOMITING, AMILCAR, GASTROENTERITIS
--- NOTE | 2022-05-24 15:54 | PCM.HP.STD ---
Documented by User: Radha Irvin NP, [employer] 05/24/22 16:09 HPI - General General Date of Admission: 05/24/22 Date of Service: 05/24/22 Chief Complaint: Nausea, vomiting, diarrhea. HPI Narrative HEIDI VUONG, is a 41 M who presents to the emergency room due to nausea, vomiting, diarrhea. Patient reports this began 5 days ago. Reports watery stools which occur very frequently. States his abdomen is sore from vomiting. Denies specific abdominal pain. Denies fever. States he traveled to [place] last week. States no one else at home is sick. Reports associated headache and sore throat. Denies other upper respiratory symptoms. Denies recent antibiotic use. Denies history of C. difficile. Patient states he has taken multiple COVID test at home which have been negative. States he is unable to keep food or drink down due to significant nausea, vomiting. He reports a past medical history of hypertension, benign adrenal tumor. [facility] Medical History (Updated 05/24/22 @ 15:[address] Fidel Miguel, ) Adrenal adenoma Adrenal benign tumor Allergies COVID-19 Depression Essential hypertension GERD (gastroesophageal reflux disease) HTN (hypertension) Hypokalemia Obesity Home Medications lisinopril 20 mg tablet 20 mg PO DAILY 07/30/21 [History Last Taken Unknown] sertraline 50 mg tablet (Zoloft) 50 mg PO DAILY 10/02/21 [History Last Taken Unknown] cetirizine 10 mg tablet (Zyrtec) 10 mg PO DAILY PRN allergies 02/26/22 [History Last Taken Unknown] omeprazole 20 mg capsule,delayed release 20 mg PO DAILY PRN Acid Reflux 02/26/22 [History Last Taken Unknown] mifepristone 300 mg tablet (Korlym) 300 tab PO DAILY 05/24/22 [History Last Taken Unknown] Allergy/AdvReac Type Severity Reaction Status Date / Time No Known Allergies Allergy Verified 05/24/22 14:10 Family History (Updated 05/24/22 @ 16:00 by Radha Irvin NP, [employer]) Father Heart disease Mother Diabetes Psychiatric care Hypertension Other Anxiety Arthritis Cancer Depression High cholesterol Mental disorder Myocardial infarction Surgical History no surgical history no surgical history Social History Smoking Status: Former smoker alcohol intake: current alcohol intake frequency: holidays/special occasions only Alcohol type: beer substance use type: does not use what type of physical activity do you participate in: none ROS Constitutional Constitutional: Reports fatigue and malaise; Denies change in weight, chills or fever(s) ENT HEENT: Reports headache(s) and sore throat Cardiovascular Cardiovascular: Denies chest pain, edema, lightheadedness, palpitations or syncope Respiratory/Chest Respiratory/Chest: Denies cough, dyspnea, productive cough, shortness of breath at rest, shortness of breath with exertion or wheezing Gastrointestinal Gastrointestinal: Reports diarrhea, nausea, vomiting and other Details: Abdominal cramping ; Denies constipation Genitourinary Genitourinary: Denies burning urination, difficulty urinating, dysuria, hematuria, urinary frequency, urinary incontinence or urinary urgency Musculoskeletal Musculoskeletal: Denies back pain, joint pain or muscle weakness Integumentary Integumentary: Denies erythema, lesions, rash or wounds Neurologic Neurologic: Denies abnormal speech, confusion, dizziness, focal weakness, numbness, paresthesias, seizure-like activity or syncope Psychiatric Psychiatric: Denies anxiety or depression Hematologic/Lymphatic Hematologic/Lymphatic: Denies anemia, easy bleeding or easy bruising Allergic/Immunologic Allergic/Immunologic: Denies hives or asthma Vital Signs Vital Signs Vital Signs: 05/24/22 14:08 05/24/22 14:17 Temperature 96 F L Temperature Source Temporal Pulse Rate 111 H 99 Respiratory Rate 25 H 18 Blood Pressure 145/129 H 142/91 H Blood Pressure Mean 134 108 Pulse Ox 100 99 Oxygen Delivery Method Room Air Room Air Weight Weight: 395 lb Body Mass Index (BMI) 60.0 Physical Exam Const alert, oriented x3 and no apparent distress Constitutional Narrative: Fatigued appearing Orientation / Consciousness: awake, oriented to person, oriented to place and oriented to time Nutritional Appearance: obese morbidly obese HEENT normocephalic Mouth: dry mucous membranes Eyes PERRL, EOMs intact bilaterally and conjunctivae normal Neck no lymphadenopathy Resp normal respiratory effort and clear to auscultation bilaterally Cardio regular rate, regular rhythm and no murmurs Peripheral Pulses: pulses 2+ throughout GI normal to inspection, nondistended, normoactive bowel sounds, non-tender and non-distended Extremity normal to inspection Skin no rashes or lesions noted Lesions: no lesions Rashes: no rashes Trauma: no lacerations or abrasions Neuro CN's II-XII intact bilaterally, no focal motor deficits, no sensory deficits noted and deep tendon reflexes 2+ bilaterally Psych mental status grossly normal and affect normal Results Lab / Micro Data Result Diagrams: 05/24/22 14:37 05/24/22 14:37 Labs: Laboratory Results - last 24 hr 05/24/22 14:37: WBC 9.7, RBC 5.90, Hgb 17.3 H, Hct 50.9, MCV 86.3, MCH 29.3, MCHC 34.0, RDW Std Deviation 39.8, RDW Coeff of Valentina 12.7, Plt Count 368, MPV 9.7, Immature Gran % (Auto) 0.500, Neut % (Auto) 67.7, Lymph % (Auto) 19.7, [place] % (Auto) 10.9 H, Eos % (Auto) 1.0, Baso % (Auto) 0.2, Absolute Neuts (auto) 6.6, Absolute Lymphs (auto) 1.91, Nucleated RBC % 0 05/24/22 14:37: Sodium 136, Potassium 3.2 L, Chloride 101, Carbon Dioxide 23.0, Anion Gap 12, BUN 14, Creatinine 1.45 H, Estim Creat Clear Calc 66.17, Est GFR (MDRD) Af Amer 69, Est GFR (MDRD) Non-Af 57 L, BUN/Creatinine Ratio 9.7 L, Glucose 134 H, Calcium 9.7, Total Bilirubin 1.40 H, AST 52 H, ALT 98 H, Alkaline Phosphatase 74, Total Protein 7.7, Albumin 4.1, Globulin 3.6, Albumin/Globulin Ratio 1.1 05/24/22 14:37: Lactic Acid 3.2 H* Assessment & Plan Assessment/Plan (1) Acute kidney injury: (2) Gastroenteritis: PLAN: Plan 1. Acute kidney injury secondary to suspected acute viral gastroenteritis with intractable nausea, vomiting, diarrhea-aggressive IV fluids. As needed antiemetics. Send stool for enteric pathogen panel, C. difficile. 2. Hypokalemia-secondary to above. Replace per protocol. Trend BMP. 3. Lactic acidosis-secondary to #1. Aggressive IV fluids. 4. Hypertension-hold lisinopril. As needed hydralazine. 5. Morbid obesity-BMI 60. Patient states he is in the process of being evaluated for gastric sleeve. 6. Benign adrenal adenoma-on Korlym. Referred for surgical resection however this has been delayed due to patient's weight. DVT prophylaxis-not indicated, low risk This patient was seen by HÉCTOR Wallace under the supervision of Dr. Dos Santos. Time spent examining patient, reviewing data and subsequent management of care: 23 minutes Documented by User: Dr. Armando Dos Santos MD 05/24/22 16:43 HPI - General General Date of Admission: 05/24/22 [facility] Medical History (Updated 05/24/22 @ 15:[address] Fidel Miguel DO) Adrenal adenoma Adrenal benign tumor Allergies COVID-19 Depression Essential hypertension GERD (gastroesophageal reflux disease) HTN (hypertension) Hypokalemia Obesity Home Medications lisinopril 20 mg tablet 20 mg PO DAILY 07/30/21 [History Last Taken Unknown] sertraline 50 mg tablet (Zoloft) 50 mg PO DAILY 10/02/21 [History Last Taken Unknown] cetirizine 10 mg tablet (Zyrtec) 10 mg PO DAILY PRN allergies 02/26/22 [History Last Taken Unknown] omeprazole 20 mg capsule,delayed release 20 mg PO DAILY PRN Acid Reflux 02/26/22 [History Last Taken Unknown] mifepristone 300 mg tablet (Korlym) 300 tab PO DAILY 05/24/22 [History Last Taken Unknown] Allergy/AdvReac Type Severity Reaction Status Date / Time No Known Allergies Allergy Verified 05/24/22 14:10 Family History (Updated 05/24/22 @ 16:00 by Radha Irvin NP, [employer]) Father Heart disease Mother Diabetes Psychiatric care Hypertension Other Anxiety Arthritis Cancer Depression High cholesterol Mental disorder Myocardial infarction Surgical History no surgical history Social History Smoking Status: Former smoker alcohol intake: current alcohol intake frequency: holidays/special occasions only Alcohol type: beer substance use type: does not use what type of physical activity do you participate in: none Results Lab / Micro Data Result Diagrams: 05/24/22 14:37 05/24/22 14:37 Assessment & Plan Assessment/Plan (1) Acute kidney injury: (2) Gastroenteritis: Charges/Coding Addendum Addendum: Addendum: Dr. Dos Santos I personally examined the patient and reviewed the chart. I agree with the above. 41-year-old male with 5 days of nausea vomiting and diarrhea presents to the hospital with lightheadedness and dizziness. Work-up demonstrates slight AMILCAR as well as hypokalemia. Lactic acid is 3.2 but no signs of infection. He does appear to be dehydrated secondary to his AMILCAR as well as hemoglobin of 17.3. He was given a liter of fluid in the ER and will continue with aggressive IV fluid hydration. Continue with antinausea medications and a stool culture is pending. Time spent in all aspects of patient care: 35 minutes Visit Charges OBSV E&M: [id number] Initial observation care L2
[2022-05-24] MEDS: 0.9% Normal Saline 1,000 ML 85 ML IV (17:30)
[2022-05-24] MEDS: Potassium Chloride 10mEq/100mL 10 MEQ/100 ML IV.SOLN. 100 MEQ IV BOLUS ×4 (17:32→20:38)
[2022-05-24 18:40] LABS: Reflex Lactate? Y
[2022-05-24 19:41] LABS: Lactic Acid 1.2 mmol/L (0.4-1.9)
--- NOTE | 2022-05-24 20:56 | NURSING ---
Pt states he has sleep apnea. States he has insurance, but they don't pay for very much. Pt states he is unable to afford the test or the machine. Pt also concerned about what the cost of the hospital stay will be. Informed pt that the hospital has programs to assist pt's that qualify. Will ask case management to see pt.
[2022-05-24] MEDS: MELATONIN 3 MG TABLET PO (21:39)
[2022-05-25] MEDS: 0.9% Normal Saline 1,000 ML 150 ML IV ×3 (01:20→12:44)
[2022-05-25 05:56] VITALS: BP 146/99; PULSE 94; RESP 20; TEMP 36.9; O2SAT 97
[2022-05-25 06:34] LABS: Absolute Lymphocyte Count 1.58 X10^3/uL (0.83-4.51); Absolute Neutrophil Count 3.5 X10^3/uL (2.0-7.7); Basophil# 0.02 X10^3/uL; Basophil% 0.3 % (0-1); Eosinophil# 0.22 X10^3/uL; Eosinophils% 3.3 % (0-5); Hematocrit 45.5 % (40-54); Hemoglobin 14.9 g/dL (13.0-16.5); Lymphocyte # 1.58 X10^3/ul (0.83-4.51); Mean Corp Hgb Conc 32.7 g/dL (32-36); Mean Corpuscular Hgb 29.3 pg (27.0-32.0); Mean Corpuscular Volume 89.6 fL (80-94); Mean Platelet Vol. 9.5 fl (6.2-12.0); Monocyte# 1.18 X10^3/uL; NRBC Flagged by Analyzer 0 % (0-5); Neutrophil # 3.53 X10^3/uL (2.7-7.7); Neutrophil % 53.8 % (47-70); Platelet Count 326 K/mm3 (150-450); Red Blood Count 5.08 M/mm3 (4.6-6.2); White Blood Count 6.6 K/mm3 (4.4-11.0)
[2022-05-25 07:02] LABS: Anion Gap 4 (5-15); BUN 16 mg/dL (7-18); BUN/Creat Ratio 14.8 RATIO (10-20); Calcium,Total 8.3 mg/dL (8.5-10.1); Chloride 105 mmol/L (98-107); Creatinine, Serum 1.08 mg/dL (0.70-1.30); EST Glomerular Filtration Rate 81 mL/min (>60); Est Glom Filt Rate - Afr Amer 98 mL/min (>60); Estimated Creatinine Clearance 91.83 ml/min; Glucose 130 mg/dL (74-106); Sodium Level 136 mmol/L (136-145)
[2022-05-25 08:08] VITALS: BP 129/71; PULSE 105; RESP 18; TEMP 37.2; O2SAT 98
--- NOTE | 2022-05-25 10:34 | DCINST_ITS ---
Discharge Instructions Diet Discharge Diet: Light diet - advance as tolerated Activity Discharge Activity: Return to Normal Activity Dressing / Incision Call your doctor if you observe: Fever of 101 or Higher, Shortness of breath, Dizziness, Chest pain and - (intractable diarrhea) Follow Up Care Test Results: Test results from this visit will be discussed in further detail at your follow- up appointment, if applicable. Discharge Plan Admission Admit Date/Time: 05/24/22 15:38 Primary Reason for Your Visit: Acute kidney injury, viral gastroenteritis Attending Provider: rAmando Dos Santos Primary Care Provider: Sanjay Varela Discharge Orders/Prescriptions Prescriptions: New promethazine 12.5 mg tablet 12.5 mg PO TID PRN (Reason: nausea and vomiting) Qty: 10 0RF Continued omeprazole 20 mg capsule,delayed release(DR/EC) 20 mg PO DAILY PRN (Reason: Acid Reflux) cetirizine [Zyrtec] 10 mg tablet 10 mg PO DAILY PRN (Reason: allergies) lisinopril 20 mg Tablet 20 mg PO DAILY sertraline [Zoloft] 50 mg Tablet 50 mg PO DAILY Korlym 300 mg tablet 300 tab PO DAILY Referrals / Follow Up: Sanjay Varela MD [Primary Care Provider] - Within 1 Week Disposition Disposition (needs filled in before D/C Order can be placed): Home, Self Care
--- NOTE | 2022-05-25 10:39 | PCM.DC.SUM ---
Documented by User: Radha Irvin NP, CAN CLOSING MACHINE TENDER-C 05/25/22 10:44 Providers Date of Admission: 05/24/22 Date of Discharge: 05/25/22 Primary Care Physician: Dr. Sanjay Varela MD Reason For Visit: VIRAL GASTROENTERITIS Diagnosis Discharge Diagnosis (1) Acute kidney injury: Status: Acute Code(s): N17.9 - Acute kidney failure, unspecified (2) Gastroenteritis: Status: Acute Code(s): K52.9 - Noninfective gastroenteritis and colitis, unspecified Medications at Discharge Home Medications lisinopril 20 mg tablet 20 mg PO DAILY 07/30/21 sertraline 50 mg tablet (Zoloft) 50 mg PO DAILY 10/02/21 cetirizine 10 mg tablet (Zyrtec) 10 mg PO DAILY PRN allergies 02/26/22 omeprazole 20 mg capsule,delayed release 20 mg PO DAILY PRN Acid Reflux 02/26/22 mifepristone 300 mg tablet (Korlym) 300 tab PO DAILY 05/24/22 promethazine 12.5 mg tablet 12.5 mg PO TID PRN nausea and vomiting #10 tabs 05/25/22 Hospital Course Operations None Procedures None Summary of Care Provided Hospital Course: Patient is a 41-year-old male admitted 05/24/2022 due to intractable nausea, vomiting, diarrhea. 1.? Acute kidney injury secondary to suspected acute viral gastroenteritis with intractable nausea, vomiting, diarrhea-patient treated with aggressive IV fluids, as needed antiemetics. Symptomatically improved quickly. Diarrhea improved. Tolerating diet. Stool for enteric bacteriology pending. If negative, patient may use as needed Imodium for diarrhea. Encouraged increased fluid intake. Follow up with PCP within one week. 2.? Hypokalemia-secondary to above.? Replace per protocol, resolved. 3. Lactic acidosis-secondary to #1.? Resolved. 4. Hypertension-continue home lisinopril regimen. 5. Morbid obesity-BMI 60.? Patient states he is in the process of being evaluated for gastric sleeve. 6. Benign adrenal adenoma-on Korlym.? Referred for surgical resection however this has been delayed due to patient's weight. Following with endocrinology. Physical Exam Const alert, oriented x3 and no apparent distress Constitutional Narrative: Orientation / Consciousness: awake, oriented to person, oriented to place and oriented to time Nutritional Appearance: obese morbidly obese HEENT normocephalic Mouth: moist mucous membranes Eyes PERRL, EOMs intact bilaterally and conjunctivae normal Neck no lymphadenopathy Resp normal respiratory effort and clear to auscultation bilaterally Cardio regular rate, regular rhythm and no murmurs Peripheral Pulses: pulses 2+ throughout GI normal to inspection, nondistended, normoactive bowel sounds, non-tender and non-distended Extremity normal to inspection Skin no rashes or lesions noted Lesions: no lesions Rashes: no rashes Trauma: no lacerations or abrasions Neuro CN's II-XII intact bilaterally, no focal motor deficits, no sensory deficits noted and deep tendon reflexes 2+ bilaterally Psych mental status grossly normal and affect normal This patient was seen by HÉCTOR Wallace under the supervision of Dr. Dos Santos. Time spent examining patient, reviewing data and subsequent management of care: 20 minutes Weight / BMI Weight Weight: 395 lb Body Mass Index (BMI) 58.3 ABG / Lab / Microbiology Data Result Diagrams: 05/25/22 06:16 05/25/22 06:16 Laboratory: Laboratory Results - last 24 hr 05/24/22 14:37: WBC 9.7, RBC 5.90, Hgb 17.3 H, Hct 50.9, MCV 86.3, MCH 29.3, MCHC 34.0, RDW Std Deviation 39.8, RDW Coeff of Valentina 12.7, Plt Count 368, MPV 9.7, Immature Gran % (Auto) 0.500, Neut % (Auto) 67.7, Lymph % (Auto) 19.7, Cache % (Auto) 10.9 H, Eos % (Auto) 1.0, Baso % (Auto) 0.2, Absolute Neuts (auto) 6.6, Absolute Lymphs (auto) 1.91, Nucleated RBC % 0 05/24/22 14:37: Sodium 136, Potassium 3.2 L, Chloride 101, Carbon Dioxide 23.0, Anion Gap 12, BUN 14, Creatinine 1.45 H, Estim Creat Clear Calc 66.17, Est GFR (MDRD) Af Amer 69, Est GFR (MDRD) Non-Af 57 L, BUN/Creatinine Ratio 9.7 L, Glucose 134 H, Calcium 9.7, Total Bilirubin 1.40 H, AST 52 H, ALT 98 H, Alkaline Phosphatase 74, Total Protein 7.7, Albumin 4.1, Globulin 3.6, Albumin/Globulin Ratio 1.1 05/24/22 14:37: Lactic Acid 3.2 H* 05/24/22 18:45: Lactic Acid 1.2 05/25/22 06:16: WBC 6.6, RBC 5.08, Hgb 14.9, Hct 45.5, MCV 89.6, MCH 29.3, MCHC 32.7, RDW Std Deviation 43.0, RDW Coeff of Valentina 13.0, Plt Count 326, MPV 9.5, Immature Gran % (Auto) 0.600, Neut % (Auto) 53.8, Lymph % (Auto) 24.0, Cache % (Auto) 18.0 H, Eos % (Auto) 3.3, Baso % (Auto) 0.3, Absolute Neuts (auto) 3.5, Absolute Lymphs (auto) 1.58, Nucleated RBC % 0 05/25/22 06:16: Sodium 136, Potassium 4.0, Chloride 105, Carbon Dioxide 27.0, Anion Gap 4 L, BUN 16, Creatinine 1.08, Estim Creat Clear Calc 91.83, Est GFR (MDRD) Af Amer 98, Est GFR (MDRD) Non-Af 81, BUN/Creatinine Ratio 14.8, Glucose 130 H, Calcium 8.3 L D/C Instructions Discharge Diet: Light diet - advance as tolerated Call your doctor if you observe: Fever of 101 or Higher, Shortness of breath, Dizziness, Chest pain and - (intractable diarrhea) Meaningful Use Info Meaningful Use Diagnoses (Choose all that apply): None applicable Discharge Plan Admission Admit Date/Time: 05/24/22 15:38 Primary Reason for Your Visit: Acute kidney injury, viral gastroenteritis Attending Provider: Armando Dos Santos Primary Care Provider: Sanjay Varela Discharge Orders/Prescriptions Prescriptions: New promethazine 12.5 mg tablet 12.5 mg PO TID PRN (Reason: nausea and vomiting) Qty: 10 0RF Continued omeprazole 20 mg capsule,delayed release(DR/EC) 20 mg PO DAILY PRN (Reason: Acid Reflux) cetirizine [Zyrtec] 10 mg tablet 10 mg PO DAILY PRN (Reason: allergies) lisinopril 20 mg Tablet 20 mg PO DAILY sertraline [Zoloft] 50 mg Tablet 50 mg PO DAILY Korlym 300 mg tablet 300 tab PO DAILY Referrals / Follow Up: Sanjay Varela MD [Primary Care Provider] - Within 1 Week Disposition Disposition (needs filled in before D/C Order can be placed): Home, Self Care Documented by User: Dr. Armando Dos Santos MD 05/25/22 11:19 Providers Date of Admission: 05/24/22 Reason For Visit: VIRAL GASTROENTERITIS Diagnosis Discharge Diagnosis (1) Acute kidney injury: Status: Acute Code(s): N17.9 - Acute kidney failure, unspecified (2) Gastroenteritis: Status: Acute Code(s): K52.9 - Noninfective gastroenteritis and colitis, unspecified Medications at Discharge Home Medications lisinopril 20 mg tablet 20 mg PO DAILY 07/30/21 sertraline 50 mg tablet (Zoloft) 50 mg PO DAILY 10/02/21 cetirizine 10 mg tablet (Zyrtec) 10 mg PO DAILY PRN allergies 02/26/22 omeprazole 20 mg capsule,delayed release 20 mg PO DAILY PRN Acid Reflux 02/26/22 mifepristone 300 mg tablet (Korlym) 300 tab PO DAILY 05/24/22 promethazine 12.5 mg tablet 12.5 mg PO TID PRN nausea and vomiting #10 tabs 05/25/22 ABG / Lab / Microbiology Data Result Diagrams: 05/25/22 06:16 05/25/22 06:16 Discharge Plan Admission Admit Date/Time: 05/24/22 15:38 Primary Reason for Your Visit: Acute kidney injury, viral gastroenteritis Attending Provider: Armando Dos Santos Primary Care Provider: Sanjay Varela Discharge Orders/Prescriptions Prescriptions: New promethazine 12.5 mg tablet 12.5 mg PO TID PRN (Reason: nausea and vomiting) Qty: 10 0RF Continued omeprazole 20 mg capsule,delayed release(DR/EC) 20 mg PO DAILY PRN (Reason: Acid Reflux) cetirizine [Zyrtec] 10 mg tablet 10 mg PO DAILY PRN (Reason: allergies) lisinopril 20 mg Tablet 20 mg PO DAILY sertraline [Zoloft] 50 mg Tablet 50 mg PO DAILY Korlym 300 mg tablet 300 tab PO DAILY Referrals / Follow Up: Sanjay Varela MD [Primary Care Provider] - Within 1 Week Disposition Disposition (needs filled in before D/C Order can be placed): Home, Self Care Charges/Coding Addendum Addendum: Dr. Dos Santos I personally examined the patient and reviewed the chart. I agree with the above.? 41-year-old male with 5 days of nausea vomiting and diarrhea presents to the hospital with lightheadedness and dizziness.? Work-up demonstrates slight AMILCAR as well as hypokalemia.? Lactic acid is 3.2 but no signs of infection.? He does appear to be dehydrated secondary to his AMILCAR as well as hemoglobin of 17.3.? He was given a liter of fluid in the ER and will continue with aggressive IV fluid hydration.? Continue with antinausea medications and a stool culture is pending.? Time spent in all aspects of patient care: 35 minutes 05/25/2022: Feels much better today, renal function is back to normal and his nausea has been controlled. He was able to give a stool sample today and he says that it was much less watery than it normally is. I discussed with him the possibility for going home today and he said that he would like that he is able to drink plenty of fluids now without any significant nausea. He expressed understanding of the risk and benefits of going home and would like to go home today. I discussed with him that if his stool cultures come back with anything that is. Clinical time spent in all aspects of patient care: 30 minutes Visit Charges OBSV E&M: [id number] Observation care discharge
[2022-05-25] MEDS: Sertraline 50 MG Tablet PO (10:59)
[2022-05-25 14:35] VITALS: BP 138/70; PULSE 70; RESP 18; TEMP 37.1; O2SAT 98
--- NOTE | 2022-05-25 15:08 | PHA.DC.MR ---
Pharmacy Service has performed discharge medication reconciliation for this patient. The patient's discharge medication list was reviewed for discrepancies and discrepancies were resolved. Patient in contact precautions. Attempted to cancer genetic counselor via telephone but patient did not answer. Home Medications lisinopril 20 mg tablet 20 mg PO DAILY 07/30/21 sertraline 50 mg tablet (Zoloft) 50 mg PO DAILY 10/02/21 cetirizine 10 mg tablet (Zyrtec) 10 mg PO DAILY PRN allergies 02/26/22 omeprazole 20 mg capsule,delayed release 20 mg PO DAILY PRN Acid Reflux 02/26/22 mifepristone 300 mg tablet (Korlym) 300 tab PO DAILY 05/24/22 promethazine 12.5 mg tablet 12.5 mg PO TID PRN nausea and vomiting #10 tabs 05/25/22
== END 2022-05-25 14:59 | disposition home or self-care (01) ==
LOC: ED 15:24 → MS3 16:10
PROVIDERS: Admitting Provider Family Medicine; Emergency Provider Emergency Medicine; PCP Family Medicine; Visit Provider Family Medicine
DX: K52.9 Noninfective gastroenteritis and colitis, unspecified (principal); N17.9 Acute kidney failure, unspecified; E66.01 Morbid (severe) obesity due to excess calories; Z68.44 Body mass index [BMI] 60.0-69.9, adult; I10 Essential (primary) hypertension; R42 Dizziness and giddiness; E87.6 Hypokalemia; D35.00 Benign neoplasm of unspecified adrenal gland; E87.2 Acidosis; Z87.891 Personal history of nicotine dependence; Z86.16 Personal history of COVID-19; K21.9 Gastro-esophageal reflux disease without esophagitis; F32.A Depression, unspecified; Z79.899 Other long term (current) drug therapy
CPT/HCPCS: 36415; 80048; 80053; 83605; 85025; 87506; 96361; 96365; 96366; 96375; 99218; 99284; J7030; A4216; G0378; J2405

== ENCOUNTER → 2022-05-28 | Outpatient (CLI) | payer OTHER, SELFPAY ==
[2022-05-28 15:04] LABS: Internal QC Validated? YES +Cl - CLEAR BKGD; Monotest Negative (Negative)
== END | disposition home or self-care (01) ==
LOC: MTLAB 12:44
PROVIDERS: PCP Family Medicine; Referring Provider Family Medicine; Visit Provider Family Medicine
DX: J02.9 Acute pharyngitis, unspecified (principal)
CPT/HCPCS: 36415; 86308

== ENCOUNTER → 2022-10-28 | Outpatient (CLI) | payer OTHER, SELFPAY ==
[2022-10-28 10:01] LABS: Absolute Lymphocyte Count 1.21 X10^3/uL (0.83-4.51); Absolute Neutrophil Count 3.9 X10^3/uL (2.0-7.7); Basophil# 0.03 X10^3/uL; Basophil% 0.5 % (0-1); Eosinophil# 0.19 X10^3/uL; Eosinophils% 2.9 % (0-5); Hematocrit 45.4 % (40-54); Hemoglobin 15.4 g/dL (13.0-16.5); Lymphocyte # 1.21 X10^3/ul (0.83-4.51); Lymphocyte % 18.2 % (19-41); Mean Corp Hgb Conc 33.9 g/dL (32-36); Mean Corpuscular Volume 88.5 fL (80-94); Mean Platelet Vol. 9.3 fl (6.2-12.0); Monocyte% 19.5 % (0-10); NRBC Flagged by Analyzer 0 % (0-5); Neutrophil # 3.86 X10^3/uL (2.7-7.7); Neutrophil % 57.8 % (47-70); Platelet Count 325 K/mm3 (150-450); RBC Distribution Width CV 12.7 % (11.6-14.6); RBC Distribution Width SD 41.7 fl (35.1-43.9); Red Blood Count 5.13 M/mm3 (4.6-6.2); White Blood Count 6.7 K/mm3 (4.4-11.0)
[2022-10-28 11:17] LABS: ALB/GLOB Ratio 1.2 RATIO (0.9-2.4); AST(SGOT) 32 U/L (15-37); Alanine Aminotransfer ALT/SGPT 68 U/L (16-61); Albumin, Serum 3.8 g/dL (3.2-5.0); Alkaline Phosphatase 94 U/L (45-117); Anion Gap 7 (5-15); BUN 7 mg/dL (7-18); BUN/Creat Ratio 9.4 RATIO (10-20); Calcium,Total 8.9 mg/dL (8.5-10.1); Chloride 102 mmol/L (98-107); Cholesterol 213 mg/dL (200); Creatinine, Serum 0.75 mg/dL (0.70-1.30); EST Glomerular Filtration Rate 123 mL/min (>60); Est Glom Filt Rate - Afr Amer 149 mL/min (>60); Globulin 3.3 g/dL (2.2-4.2); Glucose 123 mg/dL (74-106); High Density Lipoprotein 45 mg/dL; Potassium 3.5 mmol/L (3.5-5.1); Protein, Total 7.1 g/dL (6.4-8.2); Sodium Level 140 mmol/L (136-145); Triglycerides 110 mg/dL; Very Low Density Lipoprotein 22 mg/dL (5-40)
== END | disposition home or self-care (01) ==
LOC: MFPLAB 09:12
PROVIDERS: PCP Family Medicine; Referring Provider Family Medicine; Visit Provider Family Medicine
DX: E66.01 Morbid (severe) obesity due to excess calories (principal); R73.02 Impaired glucose tolerance (oral)
CPT/HCPCS: 36415; 80053; 80061; 83036; 85025

== ENCOUNTER 2022-10-29 04:00 | Emergency (ER) | payer OTHER, SELFPAY ==
[2022-10-29 04:00] VITALS: BP 124/88; PULSE 117; RESP 18; TEMP 36.1; O2SAT 95; BMI 56.7
[2022-10-29 04:48] LABS: Absolute Lymphocyte Count 1.08 X10^3/uL (0.83-4.51); Absolute Neutrophil Count 10.7 X10^3/uL (2.0-7.7); Basophil# 0.04 X10^3/uL; Basophil% 0.3 % (0-1); Eosinophil# 0.25 X10^3/uL; Eosinophils% 1.8 % (0-5); Hematocrit 50.5 % (40-54); Hemoglobin 16.6 g/dL (13.0-16.5); Lymphocyte # 1.08 X10^3/ul (0.83-4.51); Lymphocyte % 7.7 % (19-41); Mean Corp Hgb Conc 32.9 g/dL (32-36); Mean Corpuscular Hgb 29.1 pg (27.0-32.0); Mean Corpuscular Volume 88.4 fL (80-94); Mean Platelet Vol. 8.9 fl (6.2-12.0); Monocyte# 1.85 X10^3/uL; Monocyte% 13.2 % (0-10); NRBC Flagged by Analyzer 0 % (0-5); Neutrophil # 10.73 X10^3/uL (2.7-7.7); Neutrophil % 76.4 % (47-70); POSITIVE DIFFERENTIAL YES; Platelet Count 313 K/mm3 (150-450); RBC Distribution Width CV 12.9 % (11.6-14.6); RBC Distribution Width SD 41.7 fl (35.1-43.9); Red Blood Count 5.71 M/mm3 (4.6-6.2)
[2022-10-29 04:49] LABS: Differential Indicated SCAN CRITERIA MET
[2022-10-29] MEDS: 0.9% Normal Saline 1,000 ML 999 ML IV (04:51)
[2022-10-29] MEDS: Ondansetron 4 MG/2 ML Vial IV (04:51)
[2022-10-29 05:09] LABS: AST(SGOT) 30 U/L (15-37); Alanine Aminotransfer ALT/SGPT 70 U/L (16-61); Albumin, Serum 3.7 g/dL (3.2-5.0); Alkaline Phosphatase 92 U/L (45-117); Anion Gap 8 (5-15); BUN 14 mg/dL (7-18); BUN/Creat Ratio 11.6 RATIO (10-20); Bilirubin, Direct 0.16 mg/dL (0.00-0.30); Calcium,Total 9.6 mg/dL (8.5-10.1); Chloride 102 mmol/L (98-107); Creatinine, Serum 1.21 mg/dL (0.70-1.30); EST Glomerular Filtration Rate 71 mL/min (>60); Est Glom Filt Rate - Afr Amer 85 mL/min (>60); Estimated Creatinine Clearance 83.79 ml/min; Globulin 3.9 g/dL (2.2-4.2); Glucose 168 mg/dL (74-106); Lipase 154 U/L (73-393); Potassium 3.8 mmol/L (3.5-5.1); Protein, Total 7.6 g/dL (6.4-8.2); Sodium Level 138 mmol/L (136-145)
[2022-10-29 05:16] LABS: Differential Comment SCANNED
--- NOTE | 2022-10-29 06:18 | EX.ED.DYSGE1 ---
HPI History of Present Illness Chief Complaint: Nausea/Vomiting/Diarrhea Narrative Narrative: Patient is a 42-year-old male with past medical history of hypertension and adrenal mass. He states that he has had bouts of nausea and vomiting secondary to the adrenal mass in the past which have led to electrolyte derangements. He states he felt fine throughout the day and then around 11 PM began with bouts of vomiting and diarrhea and has not been able to hold any food or fluid down. He denies any known sick contacts but states he is concerned about his electrolytes because of his past experiences and therefore comes in for evaluation [facility] Medical History Adrenal adenoma Adrenal benign tumor Allergies COVID-19 Depression Essential hypertension Former smoker GERD (gastroesophageal reflux disease) HTN (hypertension) Hypokalemia Kidney stones Obesity Home Medications lisinopril 20 mg tablet 20 mg PO DAILY 07/30/21 [History Last Taken 05/24/22 10:00] sertraline 50 mg tablet (Zoloft) 50 mg PO DAILY 10/02/21 [History Last Taken 05/24/22 10:00] cetirizine 10 mg tablet (Zyrtec) 10 mg PO DAILY PRN allergies 02/26/22 [History Last Taken Unknown] ondansetron 4 mg disintegrating tablet 4 mg PO TID PRN nausea and vomiting #21 tabs 10/29/22 [Rx Last Taken Unknown] oseltamivir 75 mg capsule (Tamiflu) 75 mg PO BID 5 days #10 caps 10/29/22 [Rx Last Taken Unknown] Allergy/AdvReac Type Severity Reaction Status Date / Time No Known Allergies Allergy Verified 10/29/22 04:04 Family History (Updated 05/24/22 @ 16:00 by Radha Irvin NP, DICE MANAGER-C) Father Heart disease Mother Diabetes Psychiatric care Hypertension Other Anxiety Arthritis Cancer Depression High cholesterol Mental disorder Myocardial infarction Social History Smoking Status: Former smoker alcohol intake: current alcohol intake frequency: holidays/special occasions only Alcohol type: beer substance use type: does not use what type of physical activity do you participate in: none ROS ROS ED Constitutional Constitutional ED: Denies chills or fever(s) ENT ENT ED: Denies sore throat Cardiovascular Cardiovascular: Denies chest pain Respiratory/Chest Respiratory/Chest: Denies cough or dyspnea Gastrointestinal Gastrointestinal: Reports diarrhea, nausea and vomiting; Denies abdominal pain Genitourinary Genitourinary ED: Denies dysuria Musculoskeletal Musculoskeletal: Reports myalgias Integumentary Denies rash Neurologic Neurologic: Reports headache(s) Hematologic/Lymphatic Hematologic/Lymphatic: Denies easy bleeding or easy bruising EXAM Physical Exam Const Vital Signs: 10/29/22 04:00 10/29/22 04:00 Temperature 97.0 F L Temperature Source Temporal Pulse Rate 117 H Respiratory Rate 18 Blood Pressure 124/88 H Blood Pressure Mean 100 Pulse Ox 95 Positive well nourished, well developed and obese General Appearance ED: well developed Nutritional Appearance: obese HEENT Reports dry mucous membranes Mouth ED: Yes dry mucous membranes Mouth: dry mucous membranes Eyes PERRL and EOMs intact bilaterally General Eye ED: Negative for scleral icterus Neck supple Resp normal respiratory effort and clear to auscultation bilaterally Cardio regular rhythm Rate: tachycardic GI non-tender and non-distended GI Narrative: Abdomen is obese soft nontender nondistended with hyperactive bowel sounds no voluntary guarding or rigidity no pulsatile mass Auscultation: hyperactive bowel sounds Palpation: soft Extremity normal to inspection Neuro oriented x3 and CN's II-XII intact bilaterally Sensorium / Orientation: alert Psych mental status grossly normal Skin no rashes or lesions noted Skin Narrative: Skin turgor slightly increased General Skin Exam: Negative for jaundice MDM MDM MDM Narrative Medical decision making narrative: Patient presented to the ER afebrile but is mildly tachycardic which correlates with his dehydration. With concern for electrolyte derangement basic blood work was obtained and because of his symptoms a viral swab was ordered. Labs revealed elevated white blood cell count but otherwise no clinically significant finding. Patient's viral swab was positive for influenza A which correlates with his symptoms and the elevated white count. Patient was given Zofran and fluids and on reevaluation remains hemodynamically stable with a soft nonsurgical abdomen and has had no further bouts of vomiting. Therefore this time with a cause of the patient's symptoms no true electrolyte derangement or acute kidney injury is otherwise safe for discharge Lab Data Attestation: I reviewed the patient's lab results. Labs: Laboratory Results - last 24 hr 10/29/22 10/29/22 04:40 04:40 WBC 14.0 H RBC 5.71 Hgb 16.6 H Hct 50.5 MCV 88.4 MCH 29.1 MCHC 32.9 RDW Std Deviation 41.7 RDW Coeff of Valentina 12.9 Plt Count 313 MPV 8.9 Immature Gran % (Auto) 0.600 Neut % (Auto) 76.4 H Lymph % (Auto) 7.7 L [place] % (Auto) 13.2 H Eos % (Auto) 1.8 Baso % (Auto) 0.3 Absolute Neuts (auto) 10.7 H Absolute Lymphs (auto) 1.08 Nucleated RBC % 0 Differential Comment SCANNED Diff Path Review March foll Sodium 138 Potassium 3.8 Chloride 102 Carbon Dioxide 28.0 Anion Gap 8 BUN 14 Creatinine 1.21 Estim Creat Clear Calc 83.79 Est GFR (MDRD) Af Amer 85 Est GFR (MDRD) Non-Af 71 BUN/Creatinine Ratio 11.6 Glucose 168 H Calcium 9.6 Magnesium 2.0 Total Bilirubin 0.80 Direct Bilirubin 0.16 AST 30 ALT 70 H Alkaline Phosphatase 92 Total Protein 7.6 Albumin 3.7 Globulin 3.9 Lipase 154 Discharge Plan Triage Chief Complaint: Nausea/Vomiting/Diarrhea ED Provider: Ricci Mendoza Dx/Rx/DC Orders Clinical Impression: Influenza A, Nausea, vomiting and diarrhea, Mild dehydration Instructions: ED Dehydration (Adult), ED Influenza (Adult) Prescriptions: New oseltamivir [Tamiflu] 75 mg capsule 75 mg PO BID 5 Days Qty: 10 0RF ondansetron 4 mg tablet,disintegrating 4 mg PO TID PRN (Reason: nausea and vomiting) Qty: 21 0RF No Action cetirizine [Zyrtec] 10 mg tablet 10 mg PO DAILY PRN (Reason: allergies) lisinopril 20 mg Tablet 20 mg PO DAILY sertraline [Zoloft] 50 mg Tablet 50 mg PO DAILY Primary Care Provider: Sanjay Varela Referrals: Sanjay Varela MD [Primary Care Provider] - Activity Restrictions/Additional Instructions: You have influenza A which means you have symptoms on average for 7 days. Take the medication as directed to help control your nausea and vomiting, stay well-hydrated, and return to the ER should you have any further concerns Disposition Disposition: Home, Self Care
[2022-10-29 06:31] VITALS: BP 111/67; PULSE 94; RESP 18; O2SAT 95
[2022-10-29 12:09] LABS: Pathologist Review Reviewed
== END 2022-10-29 06:31 | disposition home or self-care (01) ==
PROVIDERS: Emergency Provider Emergency Medicine; PCP Family Medicine; Visit Provider Emergency Medicine
DX: E86.0 Dehydration (principal); R11.2 Nausea with vomiting, unspecified; J10.1 Influenza due to other identified influenza virus with other respiratory manifestations; R19.7 Diarrhea, unspecified; I10 Essential (primary) hypertension; E66.9 Obesity, unspecified; Z87.891 Personal history of nicotine dependence
CPT/HCPCS: 80048; 80076; 83690; 83735; 85025; 87428; 96374; 99282; J7030; A4216; J2405

== ENCOUNTER → 2023-02-02 | Outpatient (CLI) | payer BC, SELFPAY ==
[2023-02-02 10:09] LABS: Basophil# 0.05 X10^3/uL; Basophil% 0.9 % (0-1); Eosinophil# 0.23 X10^3/uL; Eosinophils% 4.1 % (0-5); Hematocrit 45.5 % (40-54); Hemoglobin 14.8 g/dL (13.0-16.5); Lymphocyte % 30.1 % (19-41); Mean Corp Hgb Conc 32.5 g/dL (32-36); Mean Corpuscular Hgb 29.4 pg (27.0-32.0); Mean Corpuscular Volume 90.5 fL (80-94); Mean Platelet Vol. 9.7 fl (6.2-12.0); Monocyte# 0.68 X10^3/uL; Monocyte% 12.1 % (0-10); NRBC Flagged by Analyzer 0 % (0-5); Neutrophil # 2.95 X10^3/uL (2.7-7.7); Neutrophil % 52.3 % (47-70); Platelet Count 305 K/mm3 (150-450); RBC Distribution Width CV 12.7 % (11.6-14.6); RBC Distribution Width SD 41.5 fl (35.1-43.9); Red Blood Count 5.03 M/mm3 (4.6-6.2); White Blood Count 5.6 K/mm3 (4.4-11.0)
[2023-02-02 10:25] LABS: Hemoglobin A1c 5.9 % (3.8-5.6)
[2023-02-02 10:48] LABS: ALB/GLOB Ratio 1.1 RATIO (0.9-2.4); AST(SGOT) 35 U/L (15-37); Alanine Aminotransfer ALT/SGPT 75 U/L (16-61); Albumin, Serum 3.6 g/dL (3.2-5.0); Alkaline Phosphatase 85 U/L (45-117); Anion Gap 7 (5-15); BUN 13 mg/dL (7-18); BUN/Creat Ratio 18.7 RATIO (10-20); Calcium,Total 8.8 mg/dL (8.5-10.1); Chloride 105 mmol/L (98-107); Cholesterol 185 mg/dL (200); EST Glomerular Filtration Rate 134 mL/min (>60); Est Glom Filt Rate - Afr Amer 162 mL/min (>60); Globulin 3.2 g/dL (2.2-4.2); Glucose 107 mg/dL (74-106); High Density Lipoprotein 39 mg/dL; Potassium 3.3 mmol/L (3.5-5.1); Protein, Total 6.8 g/dL (6.4-8.2); Sodium Level 140 mmol/L (136-145); Triglycerides 110 mg/dL; Very Low Density Lipoprotein 22 mg/dL (5-40)
== END | disposition home or self-care (01) ==
LOC: MFPLAB 08:18
PROVIDERS: PCP Family Medicine; Referring Provider Family Medicine; Visit Provider Family Medicine
DX: I10 Essential (primary) hypertension (principal); R73.02 Impaired glucose tolerance (oral)
CPT/HCPCS: 36415; 80053; 80061; 83036; 85025

== ENCOUNTER → 2023-06-02 | Outpatient (CLI) | payer BC, SELFPAY ==
[2023-06-02 17:24] LABS: Hematocrit 43.3 % (40-54); Hemoglobin 14.1 g/dL (13.0-16.5)
[2023-06-02 19:56] LABS: AST(SGOT) 40 U/L (15-37); Alanine Aminotransfer ALT/SGPT 81 U/L (16-61); Albumin, Serum 3.7 g/dL (3.2-5.0); Alkaline Phosphatase 78 U/L (45-117); Anion Gap 7 (5-15); BUN 17 mg/dL (7-18); Chloride 106 mmol/L (98-107); Cholesterol 155 mg/dL (200); Creatinine, Serum 1.13 mg/dL (0.70-1.30); EST Glomerular Filtration Rate 76 mL/min (>60); Est Glom Filt Rate - Afr Amer 92 mL/min (>60); Estradiol 115.5 pg/mL; Follicle Stimulating Hormone < 0.2 mIU/mL; Globulin 3.6 g/dL (2.2-4.2); Glucose 90 mg/dL (74-106); High Density Lipoprotein 41 mg/dL; Luteinizing Hormone 0.6 mIU/mL; PSA,Total - Annual Screen 0.34 ng/mL (0.00-4.00); Potassium 3.5 mmol/L (3.5-5.1); Prolactin 14.9 ng/mL; Protein, Total 7.3 g/dL (6.4-8.2); Sodium Level 139 mmol/L (136-145); Thyroid Stim Hormone (TSH) 1.26 uIU/mL (0.358-3.74); Triglycerides 97 mg/dL; Very Low Density Lipoprotein 19 mg/dL (5-40)
[2023-06-09 12:09] LABS: Sex Hormone-binding Globulin 36.5 nmol/L (16.5-55.9); Testosterone, Free 0.77 ng/dL (5.00-21.00); Testosterone, Total 55 ng/dL (264-916)
== END | disposition home or self-care (01) ==
LOC: LAB 16:31
PROVIDERS: PCP Family Medicine; Referring Provider Registered Nurse; Visit Provider Registered Nurse
DX: E29.1 Testicular hypofunction (principal); R53.83 Other fatigue; Z12.5 Encounter for screening for malignant neoplasm of prostate; R68.82 Decreased libido; R63.5 Abnormal weight gain; R35.0 Frequency of micturition; R39.16 Straining to void
CPT/HCPCS: 36415; 80053; 80061; 82627; 82670; 83001; 83002; 84146; 84153; 84270; 84402; 84403; 84443; 85014; 85018; 82626; G0103

== ENCOUNTER → 2023-07-15 | Outpatient (CLI) | payer BC, SELFPAY ==
[2023-07-15 10:48] LABS: AST(SGOT) 22 U/L (15-37); Alanine Aminotransfer ALT/SGPT 49 U/L (16-61); Albumin, Serum 3.8 g/dL (3.2-5.0); Alkaline Phosphatase 85 U/L (45-117); Anion Gap 4 (5-15); BUN 15 mg/dL (7-18); BUN/Creat Ratio 16.9 RATIO (10-20); Calcium,Total 9.3 mg/dL (8.5-10.1); Chloride 105 mmol/L (98-107); Creatinine, Serum 0.88 mg/dL (0.70-1.30); EST Glomerular Filtration Rate 101 mL/min (>60); Est Glom Filt Rate - Afr Amer 122 mL/min (>60); Globulin 3.7 g/dL (2.2-4.2); Glucose 92 mg/dL (74-106); Potassium 3.5 mmol/L (3.5-5.1); Protein, Total 7.5 g/dL (6.4-8.2); Sodium Level 137 mmol/L (136-145)
[2023-07-15 10:51] LABS: Hemoglobin A1c 4.8 % (3.8-5.6)
== END | disposition home or self-care (01) ==
LOC: MFPLAB 08:18
PROVIDERS: PCP Family Medicine; Visit Provider Family Medicine
DX: R73.02 Impaired glucose tolerance (oral) (principal)
CPT/HCPCS: 36415; 80053; 83036

== ENCOUNTER → 2023-09-05 | Outpatient (CLI) | payer BC, SELFPAY ==
[2023-09-05 11:05] LABS: Hematocrit 47.1 % (40-54); Hemoglobin 14.9 g/dL (13.0-16.5); Mean Corp Hgb Conc 31.6 g/dL (32-36); Mean Corpuscular Hgb 28.3 pg (27.0-32.0); Mean Corpuscular Volume 89.4 fL (80-94); Mean Platelet Vol. 10.2 fl (6.2-12.0); Platelet Count 355 K/mm3 (150-450); RBC Distribution Width CV 13.4 % (11.6-14.6); RBC Distribution Width SD 43.8 fl (35.1-43.9); Red Blood Count 5.27 M/mm3 (4.6-6.2); White Blood Count 8.6 K/mm3 (4.4-11.0)
[2023-09-05 11:28] LABS: PTHIN 38.8 pg/mL (18.4-80.1)
[2023-09-05 11:37] LABS: Hemoglobin A1c 4.6 % (3.8-5.6)
[2023-09-05 11:43] LABS: AST(SGOT) 23 U/L (15-37); Alanine Aminotransfer ALT/SGPT 33 U/L (16-61); Albumin, Serum 3.6 g/dL (3.2-5.0); Alkaline Phosphatase 74 U/L (45-117); Anion Gap 6 (5-15); BUN 13 mg/dL (7-18); BUN/Creat Ratio 14.4 RATIO (10-20); Calcium,Total 9.5 mg/dL (8.5-10.1); Chloride 107 mmol/L (98-107); EST Glomerular Filtration Rate 98 mL/min (>60); Est Glom Filt Rate - Afr Amer 119 mL/min (>60); Estradiol 98.5 pg/mL; Follicle Stimulating Hormone < 0.2 mIU/mL; Globulin 3.5 g/dL (2.2-4.2); Glucose 90 mg/dL (74-106); Luteinizing Hormone < 0.2 mIU/mL; PSA,Total- Diagnostic 0.66 ng/mL (0.0-4.0); Potassium 3.9 mmol/L (3.5-5.1); Prolactin 9.1 ng/mL; Protein, Total 7.1 g/dL (6.4-8.2); Sodium Level 140 mmol/L (136-145)
[2023-09-14 15:07] LABS: Adrenocorticotropic Hormone 8.9 pg/mL (7.2-63.3); Renin, Plasma 0.456 ng/mL/hr (0.167-5.380); Sex Hormone-binding Globulin 31.7 nmol/L (16.5-55.9); Testosterone, % Free 2.08 % (1.50-4.20); Testosterone, Free 16.27 ng/dL (5.00-21.00); Testosterone, Total 782 ng/dL (264-916)
== END | disposition home or self-care (01) ==
PROVIDERS: PCP Nurse Practitioner Family; Referring Provider Nurse Practitioner Family; Visit Provider Nurse Practitioner Family
DX: E29.1 Testicular hypofunction (principal); E27.9 Disorder of adrenal gland, unspecified; I10 Essential (primary) hypertension
CPT/HCPCS: 36415; 80053; 82024; 82088; 82533; 82670; 83001; 83002; 83036; 83970; 84146; 84153; 84244; 84270; 84402; 84403; 85027

== ENCOUNTER → 2024-01-05 | Outpatient (CLI) | payer BC, SELFPAY ==
--- OUTSIDE RECORDS SUMMARY | 2024-01-05 07:30 | XMS RPT_ITS | CCD ---
Author Name Unknown Address [address] [place] [address] Organization [facility] Care Team Providers Care Retail Sales Vitamin Consultant Name Role Phone JUAN ANTONIO UNDERWOOD Unavailable Unavailable ARCELIA MOTTA Unavailable Unavailable GERSON SWANN Referring Unavailable GERSON SWANN Primary Care Unavailable Nichole SHUKLA, Gerson Munoz Primary Care Provider Gerson Swann MD Primary Care Provider Unavailable Primary Care Provider UnavailLawanda Jaramillo Attending Unavailable PROVIDER, UNKNOWN Referring Unavailable Gerson Swann Primary Care Unavailable Brittani Red Attending Unavailable PROVIDER, UNKNOWN Referring Unavailable Gerson Swann Primary Care Unavailable Brittani Red Attending Unavailable PROVIDER, UNKNOWN Referring Unavailable Gerson Swann Primary Care Unavailable PROVIDER, UNKNOWN Referring Unavailable Gerson Swann Primary Care Unavailable Lawanda Bowman Attending Unavailable PROVIDER, UNKNOWN Referring Unavailable Gerson Swann Primary Care Unavailable Lawanda Bowman Attending Unavailable PROVIDER, UNKNOWN Referring Unavailable Brittani Red Attending Unavailable Gerson Swann Primary Care Unavailable Lawanda Bowman Attending Unavailable PROVIDER, UNKNOWN Referring Unavailable Gerson Swann Primary Care Unavailable Unavailable Primary Care Provider UnavailLAWANDA Jaramillo Attending Unavailable MIGUEL ANGEL KITCHEN Attending Unavaillev munoz Medications Current Medications Medication Drug Class(es) Dates Sig (Normalized) Sig (Original) sertraline 50 mg oral tablet (7 sources) Serotonin Reuptake Inhibitor Start: 01-27-2022 take 1 tablet by mouth once daily sertraline (ZOLOFT) 50 MG tablet take 1 tablet by mouth once daily 0 01/27/2022 Active Completed/Discontinued Medications Medication Drug Class(es) Dates Sig (Normalized) Sig (Original) cetirizine hydrochloride 10 mg oral tablet (3 sources) Histamine-1 Receptor Antagonist Start: 02-26-2022 cetirizine (ZYRTEC) 10 mg tablet Take by mouth. 0 02/26/2022 Active Problems Active Problems Problem Classification Problem Date Documented Date Episodic/Chronic Esophageal disorders (4 sources) Gastroesophageal reflux disease; Translations: [Gastro-esophageal reflux disease without esophagitis] 04-06-2022 Chronic Essential hypertension (6 sources) Hypertensive disorder; Translations: [Essential (primary) hypertension] Onset: 07-30-2022 04-06-2022 Chronic Miscellaneous mental health disorders (2 sources) Eating disorder, unspecified; Translations: [Eating disorder, unspecified] Onset: 10-13-2022 Chronic Other endocrine disorders (4 sources) Mass of right adrenal gland; Translations: [Other specified disorders of adrenal gland] Onset: 03-22-2022 03-22-2022 Chronic Other nutritional; endocrine; and metabolic disorders (4 sources) Morbid obesity; Translations: [Morbid (severe) obesity due to excess calories] Onset: 03-31-2022 03-31-2022 Chronic Other nutritional; endocrine; and metabolic disorders (2 sources) Morbid (severe) obesity due to excess calories; Translations: [Morbid (severe) obesity due to excess calories] Onset: 07-30-2022 Chronic Other nutritional; endocrine; and metabolic disorders (2 sources) Body mass index (BMI) 50.0-59.9, adult; Translations: [Body mass index [BMI] 50.0-59.9, adult] Onset: 07-30-2022 Chronic Spondylosis; intervertebral disc disorders; other back problems (4 sources) Backache; Translations: [Dorsalgia, unspecified] 04-06-2022 Episodic Past or Other Problems Problem Classification Problem Date Documented Da te Episodic/Chronic Neoplasms of unspecified nature or uncertain behavior (5 sources) 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; Translations: [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] Onset: 09-29-2022 09-29-2022 Episodic Other nutritional; endocrine; and metabolic disorders (4 sources) Severe obesity; Translations: [Morbid (severe) obesity due to excess calories] Onset: 03-22-2022 Resolved: 03-31-2022 03-31-2022 Chronic Other screening for suspected conditions (not mental disorders or infectious disease) (4 sources) Decreased testosterone level ; Translations: [Other specified abnormal findings of blood chemistry] Onset: 03-22-2022 03-22-2022 Episodic Results Test Name Value Interpretation Reference Range Facil ity Vital Signs Date Time Vital Sign Value Performing Clinician Jay lity 09-29-2022 10:08-0500 Body weight 181.35 kg Miguel Angel Kitchen MD Work Phone: [facility] 09-29-2022 10:08-0500 Diastolic blood pressure 106 mm[Hg] Miguel Angel Kitchen MD Work Phone: [facility] 09-29-2022 10:08-0500 Heart rate 78 /min Miguel Angel Kitchen MD Work Phone: [facility] 09-29-2022 10:08-0500 Systolic blood pressure 169 mm[Hg] Miguel Angel Kitchen MD Work Phone: [facility] Encounters Encounter Date Encounter Type Care Provider Facility Start: 01-06-2023 Telephone encounter Miguel Angel senior MD Work Phone: Endocrine Surgery Procedures Date Procedure Procedure Detail Performing Clinician Start: 10-04-2022 Cortisol total Miguel Angel alvares MD Work Phone: Start: 10-03-2022 Cortisol total Miguel Angel alvares MD Work Phone: Start: 10-02-2022 Cortisol total Miguel Angel alvares MD Work Phone: Plan of Treatment Date Care Activity Detail Author Start: 03-03-2025 DTaP/Tdap/Td vaccine (2 - Td or Tdap) DTaP/Tdap/Td vaccine (2 - Td or Tdap) [facility] Start: 11-21-2022 DEPRESSION ASSESSMENT DEPRESSION ASSESSMENT [facility] Start: 07-30-2022 End: 07-30-2022 Patient encounter procedure 07/30/2022 Office Visit Weight Management Brittani Red MD [address] [place] [address] [facility] Start: 07-22-2022 Influenza vaccination [facility] Start: 05-12-2022 End: 05-12-2022 Patient encounter procedure 05/12/2022 Office Visit Weight Management Brittani Red MD [address] [place] [address] [facility] Bariatric Care [facility] Start: 05-03-2022 End: 05-03-2022 Telemedicine consultation with patient 05/03/2022 Telemedicine Bariatrics Lilia Jean RD, LD [address] [place] [address] Bariatric Care [facility] Start: 11-21-2021 DEPRESSION ASSESSMENT DEPRESSION ASSESSMENT [facility] Start: 05-21-2021 COVID-19 VACCINE (3 - Booster for Moderna series) COVID-19 VACCINE (3 - Booster for Moderna series) [facility] Start: 2017 Diabetes screen Diabetes screen [facility] Start: 2017 LIPID SCREEN LIPID SCREEN [facility] Start: 2001 Urine microalbumin profile DTAP,TDAP,TD (1 - Tdap) [facility] Start: 2000 Hepatitis C screening Hepatitis C screen [facility] Start: 2000 HEPATITIS C SCREENING HEPATITIS C SCREENING [facility] Start: 2000 HIV SCREENING HIV SCREENING [facility] Start: 1997 HIV screening HIV screen [facility] Start: 1994 Adult depression screening assessment DEPRESSION SCREENING [facility] Start: 1994 Depression Screen Depression Screen [facility] Start: 1987 COVID-19 Vaccine (1) COVID-19 Vaccine (1) [facility] Start: 1983 Varicella vaccine (1 of 2 - 2-dose childhood series) Varicella vaccine (1 of 2 - 2-dose childhood series) [facility] Start: 03-13-1983 COVID-19 Vaccine (#1) COVID-19 Vaccine (#1) [facility] Start: 1982 HEPATITIS B (1 of 3 - 3-dose series) HEPATITIS B (1 of 3 - 3-dose series) [facility] Payers Date Payer Category Payer Unknown [id number] 2021 Unknown [id number] 2017 Unknown [id number] 1980 Unknown [id number] 2.16. [id number] 1980 Unknown [id number] 2.16. [id number] 1982 Unknown [id number] 2.16. [id number] 1982 Unknown [id number] 2.16. [id number] 1982 Unknown [id number] 2.16. [id number] 1982 Unknown [id number] 2.16. [id number] 1980 Unknown [id number] 2.16. [id number] 1980 Unknown [id number] 2.16. [id number] Social History Date Type Detail Facility Start: 03-19-2022 End: 03-22-2022 Tobacco smoking status HIIS Ex-smoker [facility] Work Phone: Start: 03-19-2022 End: 09-29-2022 Tobacco use and exposure Smokeless tobacco non-user [employer] [facility] [employer] Work Phone: Start: 04-06-2022 End: 05-21-2022 Alcohol intake Current drinker of alcohol (finding) [employer] [facility] Work Phone: Start: 03-22-2022 History SDOH Alcohol Comment MONTHLY [facility] Work Phone: Start: 1980 Sex Assigned At Not on file [facility] Work Phone: History of tobacco use Current smoker [employer] [facility] [employer] Work Phone: Tobacco smoking status HIIS Tobacco smoking consumption unknown [facility] Start: 09-29-2022 Tobacco smoking status NHIS Never smoked tobacco [facility] Note 01-06-2023 Telephone Encounter - Molly Quintero - 01/06/2023 10:21 AM EST Note Date & Type Note Facility 01-06-2023 Miscellaneous Notes Formattin g of this note might be different from the original. On 11/05/22 Dr. Smith Montalvo requested that this patient's 09/29/22 office note have an addendum added to include treatment plan. Please complete and notify admin team so it can be faxed to the requesting provider. documented in this encounter [facility] Progress note 09-29-2022 Note Date & Type Note Facility 09-29-2022 Note HNO ID: [id number] Author: Miguel Angel Kitchen MD Service: ? Author Type: Physician Type: Progress Notes Filed: 11/25/2022 12:21 PM Note Text: Miguel Angel Kitchen M.D. Department of Endocrine Surgery Endocrinology [place] [address] ENDOCRINE SURGERY NEW CONSULTATION NAME: Ari John CLINIC NO: [id number] : 1980 REFERRING PROVIDER: Dr. Smith Montalvo The patient was referred by the above provider and my findings and recommendations will be communicated by way of the shared medical record or U.S. mail. 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 New or established diagnosis: New Mode of detection: Incidental on CT Associated symptoms: No Family history of endocrine tumors: No History of previous abdominal operation: No Pertinent medications (blood thinners, calcium, biotin, diuretics, lithium): No PMH: No past medical history on file. PSH: No past surgical history on file. Medications: Current Outpatient Medications on File Prior to Visit Medication Sig cetirizine (ZYRTEC) 10 mg tablet Take by mouth. lisinopril (ZESTRIL, PRINIVIL) 20 mg tablet Take 20 mg by mouth. omeprazole (PRILOSEC) 20 mg capsule Take 20 mg by mouth. sertraline (ZOLOFT) 50 mg tablet Take 50 mg by mouth once daily. No current facility-administered medications on file prior to visit. All: ALLERGIES No Known Allergies SH: Social History Tobacco Use Smoking status: Never Smokeless tobacco: Never FH: Pertinent history above; otherwise, non-contributory REVIEW OF SYSTEMS: GENERAL: Well-appearing, no malaise or fevers HEENT: Negative for occular, acoustic, nasal, or oral complaints NECK: See HPI RESPIRATORY: Negative for cough, hemoptysis, wheezing, or resting dyspnea CARDIOVASCULAR: Negative for resting chest pain GI: No nausea, vomiting, or diarrhea MUSCULOSKELETAL: Negative for joint swelling or acute pain PSYCH: Negative for significant mood disorder or psychiatric illness ENDOCRINE: See HPI NEURO: No history of recent syncope, paralysis, or seizures PHYSICAL EXAM: On physical exam, Ari John is well appearing, alert, and oriented and does not have overt features of hypercortisolism. The abdomen is soft, non-distended, non-tender, The extremities are well-perfused and there is no edema. LABS: Scanned into [facility]; catecholamines; aldosterone; renin level within normal limits. Concern for hypercortisolism. IMAGING: Scanned into [facility]. 2.1 cm right adrenal mass. Pre-contrast HU - 26; post-contrast and delayed - 49 and 47 respectively. ASSESSMENT and PLAN: In summary, Ari John has an indeterminate right adrenal mass. Fortunately, serum metanephrines, aldosterone, an renin activity are not elevated. To further evaluate for alterations to diurnal glucocorticoid variations, I've ordered late-night salivary cortisol levels to be obtained on three consecutive evenings. I appreciate being involved in the care of your patient, and please feel free to contact me should you have additional questions. Sincerely, Miguel Angel Kitchen M.D. Endocrine Surgeon [facility] CC: Dr. Smith Montalvo [facility] History of Present illness Narrative 09-29-2022 Miguel Angel Kitchen MD - 09/29/2022 10:59 AM EST Note Date & Type Note Facility 09-29-2022 History of Presen t illness Narrative Miguel Angel Kitchen M.D. Department of Endocrine Surgery Endocrinology Metabolism [place] [address] [place] [id number] ENDOCRINE SURGERY NEW CONSULTATION NAME: Ari John CLINIC NO: [id number] : 1980 REFERRING PROVIDER: Dr. Smith Montalvo The patient was referred by the above provider and my findings and recommendations will be communicated by way of the shared medical record or U.S. mail. 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 New or established diagnosis: New Mode of detection: Incidental on CT Associated symptoms: No Family history of endocrine tumors: No History of previous abdominal operation: No Pertinent medications (blood thinners, calcium, biotin, diuretics, lithium): No PMH: No past medical history on file. PSH: No past surgical history on file. Medications: Current Outpatient Medications on File Prior to Visit Medication Sig cetirizine (ZYRTEC) 10 mg tablet Take by mouth. lisinopril (ZESTRIL, PRINIVIL) 20 mg tablet Take 20 mg by mouth. omeprazole (PRILOSEC) 20 mg capsule Take 20 mg by mouth. sertraline (ZOLOFT) 50 mg tablet Take 50 mg by mouth once daily. No current facility-administered medications on file prior to visit. All: ALLERGIES No Known Allergies SH: Social History Tobacco Use Smoking status: Never Smokeless tobacco: Never FH: Pertinent history above; otherwise, non-contributory REVIEW OF SYSTEMS: GENERAL: Well-appearing, no malaise or fevers HEENT: Negative for occular, acoustic, nasal, or oral complaints NECK: See HPI RESPIRATORY: Negative for cough, hemoptysis, wheezing, or resting dyspnea CARDIOVASCULAR: Negative for resting chest pain GI: No nausea, vomiting, or diarrhea MUSCULOSKELETAL: Negative for joint swelling or acute pain PSYCH: Negative for significant mood disorder or psychiatric illness ENDOCRINE: See HPI NEURO: No history of recent syncope, paralysis, or seizures PHYSICAL EXAM: On physical exam, Ari John is well appearing, alert, and oriented and does not have overt features of hypercortisolism. The abdomen is soft, non-distended, non-tender, The extremities are well-perfused and there is no edema. LABS: Scanned into [facility]; catecholamines; aldosterone; renin level within normal limits. Concern for hypercortisolism. IMAGING: Scanned into [facility]. 2.1 cm right adrenal mass. Pre-contrast HU - 26; post-contrast and delayed - 49 and 47 respectively. ASSESSMENT and PLAN: In summary, Ari John has an indeterminate right adrenal mass. Fortunately, serum metanephrines, aldosterone, an renin activity are not elevated. To further evaluate for alterations to diurnal glucocorticoid variations, I've ordered late-night salivary cortisol levels to be obtained on three consecutive evenings. I appreciate being involved in the care of your patient, and please feel free to contact me should you have additional questions. Sincerely, Miguel Angel Kitchen M.D. Endocrine Surgeon [facility] CC: Dr. Smith Montalvo documented in this encounter [facility] Instructions 09-29-2022 Patient Instructions Note Date & Type Note Facility 09-29-2022 Instructions Lydia Oh Ma - 09/29/2022 10:02 AM EST Thank you for choosing the [facility] Department of Endocrinology, Diabetes and Metabolism. Did you know that you need to call 48 hours in advance of your scheduled visit, if you are unable to make your appointment? The Endocrinology and Metabolism [place] thanks you for your commitment, because patients not showing to their appointment results in a lost opportunity for patients to receive [facility] health care at the [facility]. To Cancel an appointment, please choose one of the following: - Call the Appointment Call Center at [phone] - From [facility], Go to Appointments - Cancel Appts If cancelling, consider your need to reschedule to prevent further delays in your care. To Schedule an appointment, please choose one of the following: - Call the Appointment Call Center at [phone] - From [facility], Go to Appointments - Request an Appt documented in this encounter [facility] Note 07-20-2022 Telephone Encounter - Molly Leon - 07/20/2022 4:30 PM EDT Note Date & Type Note Facility 07-20-2022 Miscellaneous Notes Formattin g of this note might be different from the original. [facility] 02/05/22 CT abdomen & US thyroid 07/31/21 CT abdomen ENDOCRINE SURGERY PATIENT WORKSHEET Initial Call Date: July 20, 2022 Reason for Consult/ Referral: Adrenal Mass PATIENT DEMOGRAPHICS Name: Ari John [facility]#: [id number] : 1980 AGE: [age] year old Contact Numbers: Home: (home) Work: There is no work phone number on file. PATIENT PHYSICIAN INFORMATION Referring Doctor: Dr. Smith Montalvo Address: [place] Endocrinology Sign Installer: same Address: Phone: PCP: To use this Smartlink, specify the provider ID whose address you want to display, e.g., .PROVADDR[1 (where 1 is the provider ID). PAST TREATMENT Office notes: SEE EPIC Medications: NONE THAT APPLY Pre-Visit Testing Imaging Reports: SEE VEEDIMS CD of Images: Requested from referring physician (Date received: ) FNA: no FNA Slides: N/A Has the patient ever had thyroid or parathyroid surgery before: No Operative Reports: NONE AVAILABLE Pathology Reports: NONE AVAILABLE documented in this encounter [facility] Note 07-16-2022 Telephone Encounter - Molly Quintero - 07/16/2022 10:10 AM EDT Note Date & Type Note Facility 07-16-2022 Miscellaneous Notes Formattin g of this note might be different from the original. 07/16/22: Brinda from Dr. Montalvo's office called back. Apparently, Dr. Montalvo was having difficulty scheduling this patient when calling [facility]. Due to the decision tree it was the [facility] that was insisting that the patient see Dr. Banuelos. We fixed this and patient will now see Dr. Kitchen. 07/16/22: Brinda from Dr. Smith Montalvo's office called and wants to be informed when records are received via fax. [phone]. Once permission received from patient - request from [facility] - 02/05/22: CT abdomen, Thyroid US Dr. Montalvo insisting patient see Dr. Banuelos and no one else. Brinda unsure of the ins and outs, but seems as though Dr. Montalvo was making the arrangements herself and said that it was fine to see Dr. Banuelos according to whomever she spoke with at [facility]. documented in this encounter [facility] Evaluation note Note Date & Type Note Facility documented in this encounter [facility] Summary Purpose Family History No Family History Records FoundNo Family History Records FoundNo Family History Records FoundNo Family History Records FoundNo Family History Records Found Advance Directives No Advanced Directives Records FoundNo Advanced Directives Records FoundNo Advanced Directives Records FoundNo Advanced Directives Records FoundNo Advanced Directives Records Found Additional Source Comments (unrecognized sect ion and content) No Status Records FoundNo Status Records FoundNo Status Records FoundNo Status Records FoundNo Status Records Found INFORMATION SOURCE (unrecogn ized section and content) DATE CREATED AUTHOR AUTHOR'S ORGANIZ ATION 02/13/2022 [facility] DATE CREATED AUTHOR AUTHOR'S ORGANIZ ATION 09/18/2022 [facility] DATE CREATED AUTHOR AUTHOR'S ORGANIZ ATION 01/07/2023 [facility] DATE CREATED AUTHOR AUTHOR'S ORGANIZ ATION 01/07/2023 [facility] Care Teams (unrecognized sec tion and content) Retail Sales Vitamin Consultant Relationship Specialty Start Date End Date Gerson Swann MD [address] [place] [address] PCP - General Family Medicine 03/29/22 Retail [employer] Vitamin Consultant Relationship Specialty Start Date End Date Gerson Swann MD [address] [place] [id number] PCP - General Family Medicine 03/29/22 Source Comments (unrecognize d section and content) In the event this informatio n is protected by the Federal Confidentiality of Alcohol and Drug Abuse Patient Records regulations: The Federal rules restrict any use of the information to criminally investigate or prosecute any alcohol or drug abuse patient.[facility] the event this information is protected by the Federal Confidentiality of Alcohol and Drug Abuse Patient Records regulations: The Federal rules restrict any use of the information to criminally investigate or prosecute any alcohol or drug abuse patient.[facility] the event this information is protected by the Federal Confidentiality of Alcohol and Drug Abuse Patient Records regulations: The Federal rules restrict any use of the information to criminally investigate or prosecute any alcohol or drug abuse patient.[facility] the event this information is protected by the Federal Confidentiality of Alcohol and Drug Abuse Patient Records regulations: The Federal rules restrict any use of the information to criminally investigate or prosecute any alcohol or drug abuse patient.[facility] the event this information is protected by the Federal Confidentiality of Alcohol and Drug Abuse Patient Records regulations: The Federal rules restrict any use of the information to criminally investigate or prosecute any alcohol or drug abuse patient.[facility] Reason for Visit (unrecogniz ed section and content) Reason Comments Electronic Communication Faxed office no olivier to the referring provider Reason Comments Adrenal Specialty Diagnoses / Procedures Referred By Contac t Referred To Contact Endocrinology / ENDOCRINOLOGY SURGERY Diagnoses Follow-up examination Adrenal Mass Procedures OFFICE/OUTPATIENT NEW MODERATE MDM 45-59 MINUTES [place] SURG Self Miguel Angel Kitchen MD [address] [place] [id number] Referral ID Status Reason Start Date Expiration Date Visits Re quested Visits Authorized [id number] Closed 09/29/2022 11/20/2022 1 1 Reason Comments Patient Update Referring provider r equest FOR RECORDS PERTAINING TO PATIENTS WHO ARE OR HAVE BEEN ENROLLED IN A CHEMICAL DEPENDENCY/SUBSTANCEABUSE PROGRAM, SOME INFORMATION MAY BE OMITTED. This clinical summary was aggregated from multiple sources. Caution should be exercised in using it in the provision of clinical care. This summary normalizes information from multiple sources, and as a consequence, information in this document may materially change the coding, format and clinical context of patient data. In addition, data may be omitted in some cases. CLINICAL DECISIONS SHOULD BE BASED ON THE PRIMARY CLINICAL RECORDS. [employer] [facility]. provides no warranty or guarantee of the accuracy or completeness of information in this document.
[2024-01-05 08:40] LABS: Hematocrit 51.8 % (40-54); Hemoglobin 16.6 g/dL (13.0-16.5); Mean Corpuscular Hgb 28.5 pg (27.0-32.0); Mean Corpuscular Volume 88.9 fL (80-94); Mean Platelet Vol. 9.9 fl (6.2-12.0); Platelet Count 333 K/mm3 (150-450); RBC Distribution Width CV 14.7 % (11.6-14.6); RBC Distribution Width SD 47.5 fl (35.1-43.9); Red Blood Count 5.83 M/mm3 (4.6-6.2); White Blood Count 7.6 K/mm3 (4.4-11.0)
[2024-01-05 09:34] LABS: ALB/GLOB Ratio 1.1 RATIO (0.9-2.4); AST(SGOT) 21 U/L (15-37); Alanine Aminotransfer ALT/SGPT 28 U/L (16-61); Albumin, Serum 3.9 g/dL (3.2-5.0); Alkaline Phosphatase 93 U/L (45-117); Anion Gap 4 (5-15); BUN 24 mg/dL (7-18); BUN/Creat Ratio 27.3 RATIO (10-20); Calcium,Total 9.5 mg/dL (8.5-10.1); Chloride 107 mmol/L (98-107); Creatinine, Serum 0.88 mg/dL (0.70-1.30); EST Glomerular Filtration Rate 101 mL/min (>60); Est Glom Filt Rate - Afr Amer 123 mL/min (>60); Estradiol 76.6 pg/mL; Follicle Stimulating Hormone < 0.2 mIU/mL; Globulin 3.5 g/dL (2.2-4.2); Glucose 94 mg/dL (74-106); Luteinizing Hormone < 0.2 mIU/mL; Potassium 4.2 mmol/L (3.5-5.1); Prolactin 12.9 ng/mL; Protein, Total 7.4 g/dL (6.4-8.2); Sodium Level 141 mmol/L (136-145); Thyroid Stim Hormone (TSH) 1.68 uIU/mL (0.358-3.74)
[2024-01-19 12:09] LABS: PSA, Free 0.52 ng/mL; PSA, Free % 62.2 % (.); PSA, Total Ultrasensitive 0.836 ng/mL (0.000-4.000); Testosterone, % Free 5.42 % (1.50-4.20); Testosterone, Total 1452 ng/dL (264-916)
== END | disposition home or self-care (01) ==
LOC: LAB 07:27
PROVIDERS: PCP Nurse Practitioner Family; Referring Provider Nurse Practitioner Family; Visit Provider Nurse Practitioner Family
DX: E29.1 Testicular hypofunction (principal)
CPT/HCPCS: 36415; 80053; 82670; 83001; 83002; 83036; 84146; 84153; 84154; 84402; 84403; 84443; 85027

== ENCOUNTER 2024-03-12 14:43 | Emergency (ER) | payer BC, SELFPAY ==
[2024-03-12 14:44] VITALS: BP 164/91; PULSE 96; RESP 22; TEMP 35.5; O2SAT 99; BMI 37.7
--- NOTE | 2024-03-12 15:02 | EDS_ITS ---
HPI <HÉCTOR Delgadillo - Last Filed: 03/12/24 17:14> History of Present Illness Chief Complaint: Shortness of Breath Narrative Narrative: Patient is a 43-year-old male with history of hypertension presents to the emergency department for complaints of sore throat, diagnosed with strep throat today, nausea and vomiting. Patient states this happens sometimes when he gets ill. Patient states he is unable to keep anything by mouth down. Patient complains of generalized nausea and vomiting, fever chills. PFSH <HÉCTOR Delgadillo - Last Filed: 03/12/24 17:14> PFSH Medical History Adrenal adenoma Adrenal benign tumor Allergies COVID-19 Depression Essential hypertension Former smoker GERD (gastroesophageal reflux disease) HTN (hypertension) Hypokalemia Kidney stones Obesity Home Medications lisinopril 20 mg tablet 20 mg PO DAILY 07/30/21 [History Last Taken 05/24/22 10:00] sertraline 50 mg tablet (Zoloft) 50 mg PO DAILY 10/02/21 [History Last Taken 05/24/22 10:00] cetirizine 10 mg tablet (Zyrtec) 10 mg PO DAILY PRN allergies 02/26/22 [History Last Taken Unknown] ondansetron 4 mg disintegrating tablet 4 mg PO TID PRN nausea and vomiting #21 tabs 10/29/22 [Rx Last Taken Unknown] oseltamivir 75 mg capsule (Tamiflu) 75 mg PO BID 5 days #10 caps 10/29/22 [Rx Last Taken Unknown] ondansetron 4 mg disintegrating tablet 4 mg PO Q8H PRN PRN Nausea #10 tabs 03/12/24 [Rx Last Taken Unknown] Allergy/AdvReac Type Severity Reaction Status Date / Time No Known Allergies Allergy Verified 03/12/24 14:43 Family History (Updated 05/24/22 @ 16:00 by Radha Irvin NP, [employer]) Father Heart disease Mother Diabetes Psychiatric care Hypertension Other Anxiety Arthritis Cancer Depression High cholesterol Mental disorder Myocardial infarction Social History Smoking Status: Former smoker alcohol intake: current alcohol intake frequency: holidays/special occasions only Alcohol type: beer substance use type: does not use what type of physical activity do you participate in: none ROS <HÉCTOR Delgadillo - Last Filed: 03/12/24 17:14> ROS ED ROS Narrative Constitutional: Negative for fever, chills, weight loss, weakness Eyes: Negative for vision loss, vision change, double vision ENT: Negative for any ear pain, congestion. Positive for sore throat Cardiovascular: Negative for any chest pain, tightness, palpitations Respiratory: Negative for any cough, sputum production, hemoptysis, dyspnea, dyspnea on exertion, orthopnea Gastrointestinal: Negative for any abdominal pain, diarrhea, constipation, blood in stool, blood in vomit. Positive for nausea and vomiting : Negative for any urinary frequency, dysuria, retention, blood in urine Muscle skeletal: Negative for any neck pain, back pain Neurological: Negative for any headache, syncope, dizziness Skin: Negative for any rashes, itching, abrasions, lacerations Psychiatric: Negative for any depression, anxiety, stress, suicidal ideation, homicidal ideation Hematologic: Negative for any excessive bruising, easy bleeding EXAM <HÉCTOR Delgadillo - Last Filed: 03/12/24 17:14> Physical Exam Narrative Exam Narrative: Vital signs reviewed. HEET: Head normocephalic atraumatic, TMs clear bilaterally. Posterior pharynx is clear, moist mucous membranes. Nares clear bilaterally. Patient does have some erythema to bilateral tonsils, no evidence of any unilateral swelling, negative for any concern for peritonsillar abscess. Neck: Supple with no lymphadenopathy or tenderness. No signs of meningismus. Cardiac: Regular rate and rhythm no murmurs gallops or rubs, equal peripheral pulses bilaterally. Respiratory: Lungs clear to auscultation bilaterally. No chest tenderness. Abdomen: Soft, nontender, nondistended. No abdominal bruit or pulsatile masses. No hepatosplenomegaly Extremities: No peripheral edema, no signs of gross trauma or deformity. Active full range of motion of all extremities. Neuro: Cranial nerves II through XII intact, no focal neurological deficits. Skin: Clean dry and intact with no rash, purpura, petechiae, vesicles or pustules. Backs/flank: No CVA tenderness, no midline spinal tenderness, no deformity. Psych: Normal mood and affect. No SI, HI or acute psychosis. Const Vital Signs: 03/12/24 14:44 04/22/24 15:22 03/12/24 16:43 Temperature 96 F L Temperature Source Temporal Pulse Rate 96 90 Respiratory Rate 22 H 18 Respiratory Effort Short of Breath Respiratory Depth Normal Respiratory Pattern Normal Blood Pressure 164/91 H 134/84 H Blood Pressure Mean 115 100 Pulse Ox 99 91 Oxygen Delivery Method Room Air Room Air Room Air 03/12/24 18:00 03/12/24 18:18 Temperature 97.5 F L Temperature Source Pulse Rate 97 100 Respiratory Rate 16 16 Respiratory Effort Respiratory Depth Respiratory Pattern Blood Pressure 138/81 H 145/85 H Blood Pressure Mean 100 105 Pulse Ox 94 94 Oxygen Delivery Method Room Air <Anjel Alfonso MD - Last Filed: 03/12/24 23:10> Physical Exam Const Vital Signs: 03/12/24 14:44 03/12/24 15:22 03/12/24 16:43 Temperature 96 F L Temperature Source Temporal Pulse Rate 96 90 Respiratory Rate 22 H 18 Respiratory Effort Short of Breath Respiratory Depth Normal Respiratory Pattern Normal Blood Pressure 164/91 H 134/84 H Blood Pressure Mean 115 100 Pulse Ox 99 91 Oxygen Delivery Method Room Air Room Air Room Air 03/12/24 18:00 03/12/24 18:18 Temperature 97.5 F L Temperature Source Pulse Rate 97 100 Respiratory Rate 16 16 Respiratory Effort Respiratory Depth Respiratory Pattern Blood Pressure 138/81 H 145/85 H Blood Pressure Mean 100 105 Pulse Ox 94 94 Oxygen Delivery Method Room Air MDM <HÉCTOR Delgadillo - Last Filed: 03/12/24 17:14> [facility] Lab Data Labs: Laboratory Results - last 24 hr 03/12/24 15:15 WBC 19.8 H RBC 6.22 H Hgb 17.9 H Hct 54.5 H MCV 87.6 MCH 28.8 MCHC 32.8 RDW Std Deviation 43.1 RDW Coeff of Valentina 13.6 Plt Count 376 MPV 9.6 Immature Gran % (Auto) 0.500 Neut % (Auto) 78.2 H Lymph % (Auto) 7.9 L [place] % (Auto) 11.3 H Eos % (Auto) 1.6 Baso % (Auto) 0.5 Absolute Neuts (auto) 15.5 H Absolute Lymphs (auto) 1.57 Nucleated RBC % 0 Differential Comment SCANNED Diff Path Review May foll Sodium 137 Potassium 3.8 Chloride 107 Carbon Dioxide 24.0 Anion Gap 6 BUN 18 Creatinine 0.90 Estim Creat Clear Calc 139.96 Est GFR (MDRD) Af Amer 120 Est GFR (MDRD) Non-Af 99 BUN/Creatinine Ratio 20.1 H Glucose 107 H Calcium 9.5 Total Bilirubin 1.00 AST 32 ALT 59 Alkaline Phosphatase 81 Total Protein 8.0 Albumin 4.1 Globulin 3.9 Albumin/Globulin Ratio 1.1 Lipase 32 Treatment and Re-Evaluation :: Differential diagnosis includes however is not limited to: Dehydration, strep pharyngitis, influenza, COVID-19 Patient appears generally well, patient appears nontoxic, vital signs are stable. Presenting to the emergency department for nausea and vomiting after being diagnosed with strep throat. Patient is concerned because he has had history of this, and he is concerned he might get dehydrated. Patient received basic laboratory values, IV fluids, Zofran, Toradol. Patient will be given Bicillin 1,200,000 units secondary to the patient being unable to take the amoxicillin he was prescribed. Patient be reevaluated. Patient does have a leukocytosis with a white count of 19.8, hemoconcentrated 17.9 this could be secondary to vomiting as well as strep throat. Patient's chemistries were unremarkable. Patient will receive IM Bicillin for strep throat. Patient was given Toradol,, IV fluids. On reevaluation, patient states that he felt slightly better. The patient be given 1 more liter fluid, oral dexamethasone. Patient be discharged home with Zofran, he is instructed to maintain hydration. Patient was given a Bicillin shot, he no longer has to take the amoxicillin. Patient is happy with the plan of care, he is instructed to maintain hydration, <Anjel Alfonso MD - Last Filed: 03/12/24 23:10> [facility] Narrative Medical decision making narrative: Dr. Alfonso: I have personally performed a face to face assessment of the patient and have reviewed the HERNANDEZ Note. I performed a substantive portion of the visit including all aspects of the following. My zurita findings include: History is patient diagnosed with strep throat today. States whenever he gets sick, he ends up having nausea and vomiting and becomes dehydrated. Exam is afebrile. Vital signs noted. Regular rate and rhythm. Lungs clear to auscultation bilaterally. Abdomen soft and nontender with normoactive bowel sounds. Airway patent. No drooling or trismus. Positive pharyngeal erythema. Medical Decision Making: IV fluids. Check labs. Patient has a leukocytosis of 19.8 which I think could be from his nausea and vomiting and demargination, he is slightly dehydrated with a hemoglobin hemoconcentrated at 17.9 with hematocrit 54.5. Platelet count normal at 376. Electrolyte panel is grossly unremarkable with a BUN normal at 18 and creatinine 0.9. Lipase was checked to rule out pancreatitis as a cause of his nausea and vomiting and it is normal. After 2 L of IV fluids, he will be given intramuscular injection of Bicillin for his strep throat so that he does not have to take oral medication. Discharge. Other additions or changes: [None] History & Record Review Discussion w/independent historian: Patient Lab Data Attestation: I reviewed the patient's lab results. Labs: Laboratory Results - last 24 hr 03/12/24 15:15 WBC 19.8 H RBC 6.22 H Hgb 17.9 H Hct 54.5 H MCV 87.6 MCH 28.8 MCHC 32.8 RDW Std Deviation 43.1 RDW Coeff of Valentina 13.6 Plt Count 376 MPV 9.6 Immature Gran % (Auto) 0.500 Neut % (Auto) 78.2 H Lymph % (Auto) 7.9 L [place] % (Auto) 11.3 H Eos % (Auto) 1.6 Baso % (Auto) 0.5 Absolute Neuts (auto) 15.5 H Absolute Lymphs (auto) 1.57 Nucleated RBC % 0 Differential Comment SCANNED Diff Path Review May foll Sodium 137 Potassium 3.8 Chloride 107 Carbon Dioxide 24.0 Anion Gap 6 BUN 18 Creatinine 0.90 Estim Creat Clear Calc 139.96 Est GFR (MDRD) Af Amer 120 Est GFR (MDRD) Non-Af 99 BUN/Creatinine Ratio 20.1 H Glucose 107 H Calcium 9.5 Total Bilirubin 1.00 AST 32 ALT 59 Alkaline Phosphatase 81 Total Protein 8.0 Albumin 4.1 Globulin 3.9 Albumin/Globulin Ratio 1.1 Lipase 32 Discharge Plan Triage Chief Complaint: Shortness of Breath ED Midlevel Provider: Gio Gao ED Provider: Anjel Alfonso Dx/Rx/DC Orders Clinical Impression: Leukocytosis, Strep pharyngitis, Nausea & vomiting Instructions: ED Pharyngitis, Strep (Confirmed), ED Vomiting (Adult), ED Vomit Diarrhea Nonspec Adult Prescriptions: New ondansetron 4 mg tablet,disintegrating 4 mg PO Q8H PRN PRN (Reason: Nausea) Qty: 10 0RF No Action cetirizine [Zyrtec] 10 mg tablet 10 mg PO DAILY PRN (Reason: allergies) lisinopril 20 mg Tablet 20 mg PO DAILY sertraline [Zoloft] 50 mg Tablet 50 mg PO DAILY oseltamivir [Tamiflu] 75 mg capsule 75 mg PO BID 5 Days Qty: 10 0RF ondansetron 4 mg tablet,disintegrating 4 mg PO TID PRN (Reason: nausea and vomiting) Qty: 21 0RF Primary Care Provider: Chris Whitaker NP Referrals: Chris Whitaker NP, [employer] [Primary Care Provider] - Activity Restrictions/Additional Instructions: You were given Bicillin IM, this is the treatment for strep throat. You no longer need to take amoxicillin. The steroids I gave you in the ER is a one- time dose. You are given a prescription for Zofran. Maintain hydration. Disposition Disposition: Home, Self Care Discharge Date/Time: 03/12/24 18:18
[2024-03-12] MEDS: Ketorolac 15 MG/ML Vial IV (15:16)
[2024-03-12] MEDS: 0.9% Normal Saline (1000mL) 1,000 ML 1000 ML IV (15:16)
[2024-03-12] MEDS: Ondansetron 4 MG/2 ML Vial IV (15:17)
[2024-03-12 15:22] VITALS: O2SAT 92
--- NOTE | 2024-03-12 15:24 | ED.RN ---
pt complaining of severe sore throat and difficulty swallowing. pt with nausea and vomiting for 48 hours.
[2024-03-12 15:27] LABS: Absolute Lymphocyte Count 1.57 X10^3/uL (0.83-4.51); Absolute Neutrophil Count 15.5 X10^3/uL (2.0-7.7); Basophil% 0.5 % (0-1); Eosinophil# 0.31 X10^3/uL; Eosinophils% 1.6 % (0-5); Hematocrit 54.5 % (40-54); Hemoglobin 17.9 g/dL (13.0-16.5); Lymphocyte # 1.57 X10^3/ul (0.83-4.51); Lymphocyte % 7.9 % (19-41); Mean Corp Hgb Conc 32.8 g/dL (32-36); Mean Corpuscular Hgb 28.8 pg (27.0-32.0); Mean Corpuscular Volume 87.6 fL (80-94); Mean Platelet Vol. 9.6 fl (6.2-12.0); Monocyte# 2.24 X10^3/uL; Monocyte% 11.3 % (0-10); NRBC Flagged by Analyzer 0 % (0-5); Neutrophil # 15.48 X10^3/uL (2.7-7.7); Neutrophil % 78.2 % (47-70); POSITIVE DIFFERENTIAL YES; Platelet Count 376 K/mm3 (150-450); RBC Distribution Width CV 13.6 % (11.6-14.6); RBC Distribution Width SD 43.1 fl (35.1-43.9); Red Blood Count 6.22 M/mm3 (4.6-6.2); White Blood Count 19.8 K/mm3 (4.4-11.0)
[2024-03-12 15:28] LABS: Differential Indicated SCAN CRITERIA MET
[2024-03-12 15:47] LABS: ALB/GLOB Ratio 1.1 RATIO (0.9-2.4); AST(SGOT) 32 U/L (15-37); Alanine Aminotransfer ALT/SGPT 59 U/L (16-61); Albumin, Serum 4.1 g/dL (3.2-5.0); Alkaline Phosphatase 81 U/L (45-117); Anion Gap 6 (5-15); BUN 18 mg/dL (7-18); BUN/Creat Ratio 20.1 RATIO (10-20); Calcium,Total 9.5 mg/dL (8.5-10.1); Chloride 107 mmol/L (98-107); EST Glomerular Filtration Rate 99 mL/min (>60); Est Glom Filt Rate - Afr Amer 120 mL/min (>60); Estimated Creatinine Clearance 139.96 ml/min; Globulin 3.9 g/dL (2.2-4.2); Glucose 107 mg/dL (74-106); Lipase 32 U/L (13-75); Potassium 3.8 mmol/L (3.5-5.1); Sodium Level 137 mmol/L (136-145)
[2024-03-12 15:48] LABS: Differential Comment SCANNED
[2024-03-12] MEDS: Penicillin G Benzathine 1.2 MU/2 ML Syringe IM (16:03)
[2024-03-12 16:43] VITALS: BP 134/84; PULSE 90; RESP 18; O2SAT 91
[2024-03-12] MEDS: dexAMETHasone 4 MG Tablet 12 MG PO (17:11)
[2024-03-12] MEDS: 0.9% Normal Saline (1000mL) 1,000 ML 999 ML IV (17:11)
[2024-03-12 18:00] VITALS: BP 138/81; PULSE 97; RESP 16; O2SAT 94
[2024-03-12 18:18] VITALS: BP 145/85; PULSE 100; RESP 16; TEMP 36.4; O2SAT 94
[2024-03-13 09:28] LABS: Pathologist Review Reviewed
--- NOTE | 2024-03-15 08:30 | ED.RN ---
03/15/24 given a work note stating he was seen in the ED on 03/12/24
== END 2024-03-12 18:18 | disposition home or self-care (01) ==
PROVIDERS: Nurse Practitioner; Emergency Provider Emergency Medicine; PCP Nurse Practitioner Family; Visit Provider Emergency Medicine
DX: R06.02 Shortness of breath (principal); J02.0 Streptococcal pharyngitis; R11.2 Nausea with vomiting, unspecified; Z87.891 Personal history of nicotine dependence; D72.829 Elevated white blood cell count, unspecified; I10 Essential (primary) hypertension; Z79.899 Other long term (current) drug therapy; F32.A Depression, unspecified
CPT/HCPCS: 80053; 83690; 85025; 87631; 96361; 96372; 96374; 96375; 99283; J7030; A4216; J2405